=== PATIENT | male | born 1965 ===

== ENCOUNTER 2023-08-07 10:25 | Day surgery (SDC) | payer MEDICAID ==
[~2023-08-07 10:25] MED LIST: LACTATED RINGERS 1,000 ML IV ONE; ceFAZolin 2 GM VIAL ONE
[2023-08-07] MEDS ORDERED: BUPIVACAINE 0.25% PF 30 ML VIAL ONE ×2 (11:45→14:05)
--- NOTE | 2023-08-07 11:51 | HISTORY & PHYSICAL EXAMINATION ---
Chief Complaint - Chief Complaint Chief Complaint: here for hernia repairs History of Present Illness - History Obtained From Records Reviewed: yes History obtained from: pt Exam Limitations: none - History of Present Illness HPI Comment/Other: bilateral inguinal hernias. recurrent on the left. more symptomatic on the left History - Past Medical History Cardiovascular: reports: Hypertension Respiratory: reports: None GI: reports: None : reports: None HEENT: reports: Chronic vision loss, Other Psych: reports: None Musculoskeletal: reports: Scoliosis Derm: reports: Psoriasis MRSA Hx?: No - Past Surgical History General: reports: Other HEENT: reports: Tonsil/Adenoidectomy Meds/Allgy - Home Medications Home Medications: Ambulatory Orders Medication Instructions Recorded Confirmed Amlodipine Besylate [Norvasc] 10 mg PO DAILY 08/01/23 08/01/23 Ibuprofen [Motrin] 400 mg PO Q6H 08/01/23 08/01/23 Multivitamin 1 each PO DAILY 08/01/23 08/01/23 Zolpidem Tartrate [Ambien] 10 mg PO QPM 08/01/23 08/01/23 - Allergies Allergies/Adverse Reactions: Allergies Allergy/AdvReac Type Severity Reaction Status Date / Time No Known Drug Allergies Allergy Verified 08/07/23 09:49 Review of Systems - Other Findings Other Findings: 10 pt ros as above otherwise unremarkable Exam - Vital Signs Vital Signs: Vital Signs x48h Temp Pulse Resp BP Pulse Ox 08/07/23 09:45 36.3 C L 107 H 18 126/91 H 98 - Physical Exam General Appearance: positive: No acute distress, Alert Eyes Bilateral: positive: PERRL, EOMI ENT: positive: No signs of dehydration Neck: positive: No JVD Respiratory: positive: No respiratory distress Cardiovascular: positive: Regular rate & rhythm Abdomen: positive: Other (bilateral inguinal hernias present.) Neurologic/Psychiatric: positive: Oriented x3 Conclusion/Plan - Problem List (1) Inguinal hernia, bilateral Conclusion/Plan: plan laparoscopic repair, possible open. parq held and consent obtained
[2023-08-07] MEDS ORDERED: fentaNYL 100 MCG/2 ML VIAL ONE (12:26)
[2023-08-07] MEDS ORDERED: DEXAMETHASONE 4 MG/ML VIAL ONE (12:28)
[2023-08-07] MEDS ORDERED: ONDANSETRON 4 MG/2 ML VIAL ONE (12:28)
--- NOTE | 2023-08-07 12:50 | ANESTHESIA ---
Pre-Anesthesia VS, & Labs - Diagnosis BILATERAL INGUINAL HERNIAS - Procedure LAPARASCOPIC BILATERAL INGUINAL HERNIA REPAIR Vital Signs: Temp Pulse Resp BP Pulse Ox O2 Flow Rate 36.3 C L 107 H 18 126/91 H 98 08/07/23 09:45 08/07/23 09:45 08/07/23 09:45 08/07/23 09:45 08/07/23 09:45 Height: 5 ft 11 in Weight (kg): 73.2 kg Body Mass Index: 22.5 BMI Classification: Normal Home Medications and Allergies Home Medications: Ambulatory Orders Amlodipine Besylate [Norvasc] 10 mg PO DAILY 08/01/23 Ibuprofen [Motrin] 400 mg PO Q6H 08/01/23 Multivitamin 1 each PO DAILY 08/01/23 Zolpidem Tartrate [Ambien] 10 mg PO QPM 08/01/23 Amlodipine Besylate [Norvasc] 10 mg PO DAILY 08/01/23 Ibuprofen [Motrin] 400 mg PO Q6H 08/01/23 Multivitamin 1 each PO DAILY 08/01/23 Zolpidem Tartrate [Ambien] 10 mg PO QPM 08/01/23 Allergies/Adverse Reactions: Allergies Allergy/AdvReac Type Severity Reaction Status Date / Time No Known Drug Allergies Allergy Verified 08/07/23 09:49 Anes History & Medical History - Anesthetic History Anesthesia Complications: reports: No previous complications Family history of Anesthesia Complications: Denies Family history of Malignant Hyperthermia: Denies - Medical History Cardiovascular: reports: Hypertension Pulmonary: reports: None Gastrointestinal: reports: None Urinary: reports: None Musculoskeletal: reports: Scoliosis Skin: reports: Psoriasis Smoking Status: Heavy tobacco smoker Psychosocial: reports: Alcohol - Surgical History General: reports: Other Eyes Ears Nose Throat (EENT): reports: Tonsil/Adenoidectomy Exam General: Cooperative Dental: Poor dentition Mouth Openin Fingerbreadth Neck Mobility: Normal Mallampati classification: II Thyromental Distance: 4-6 cm Respiratory: Lungs clear Cardiovascular: Regular rate Plan Anesthesia Type: General Consent for Procedure(s) Verified and Reviewed: Yes Code Status: Attempt Resuscitation ASA classification: 2-Mild systemic disease Is this case an emergency?: No
[2023-08-07] MEDS ORDERED: ONDANSETRON 4 MG/2 ML VIAL IVP PRN (13:13)
[2023-08-07] MEDS ORDERED: ePHEDrine 50 MG/ML VIAL IVP PRN (13:13)
[2023-08-07] MEDS ORDERED: NALOXONE 0.4 MG/ML VIAL IVP PRN (13:13)
[2023-08-07] MEDS ORDERED: ATROPINE ABBOJECT 1 MG/10 ML SYRINGE IVP PRN (13:13)
[2023-08-07] MEDS ORDERED: METOCLOPRAMIDE 10 MG/2 ML VIAL IVP PRN (13:13)
[2023-08-07] MEDS ORDERED: MORPHINE 2 MG/ML CARPUJECT IVP PRN (13:13)
[2023-08-07] MEDS ORDERED: HYDROmorphone 0.5 MG/0.5 ML SYRINGE IVP PRN (13:13)
[2023-08-07] MEDS ORDERED: fentaNYL 100 MCG/2 ML VIAL IVP PRN (13:13)
[2023-08-07] MEDS ORDERED: LACTATED RINGERS 1,000 ML IV SCH (14:00)
[2023-08-07] MEDS ORDERED: SUGAMMADEX 200 MG/2 ML VIAL IVP ONE (14:06)
[2023-08-07] MEDS ORDERED: BUPIVACAINE 0.25% PF 30 ML VIAL SUBQ ONE (14:07)
[2023-08-07] MEDS ORDERED: LACTATED RINGERS 700 ML IV ONE (14:25)
[2023-08-07] MEDS ORDERED: oxyCODONE 5 MG TABLET PO PRN (14:41)
[2023-08-07] MEDS ORDERED: HYDROcod/ACETAM 5/325 MG TABLET PO PRN (14:41)
--- NOTE | 2023-08-07 14:48 | OPERATIVE REPORT ---
Operative Report - General Procedure Date: 08/07/23 Planned Procedure: lap bilateral inguinal hernia repair Pre-Op Diagnosis: large bilateral inguinal hernias, recurrent on the left Procedure Performed: lap bilateral inguinal hernia repair, preperitoneal Post Op Diagnosis: same. very large directs - Procedure Note Primary Surgeon: claudio higgins Anesthesia Technique: General ET tube, Local Pathology: none Estimated Blood Loss (mL): 2 Indications: large painful hernia bulges Findings: as above Complications: none - Other Other Information/Narrative: The patient was prepped identified brought to the operating room and placed in supine position. Sequential compression devices were placed. General endotracheal anesthesia was induced. Langford catheter was placed. He was prepped and draped in a sterile fashion and given preoperative antibiotics. Local anesthetic was given to the operative area. A 3 cm infraumbilical incision was made. A 2 and half centimeter incision was made on the fascia just right lateral of midline. The preperitoneal space was developed with digital blunt dissection. A Lyons trocar was placed and secured with 3 interrupted 0 Vicryl sutures. The preperitoneal space was further developed using the scope. In midline two 5 mm trochars were placed. The right inguinal hernia was first approached. The preperitoneal space was further developed. The peritoneum was further brought down. There was no indirect inguinal hernia. The inferior epigastrics were kept along the abdominal wall. The patient had very large direct inguinal hernias. The left side was then approached. Dissection proceeded in a similar fashion. A pocket was created on both sides to allow for large preformed mesh. Bard extra large preformed mesh was placed bilaterally and secured at the pubic tubercle along Paulo's ligament and anteriorly under the rectus musculature. The mesh lay in good position. CO2 was evacuated and trochars removed under vision. Fascia at the periumbilical area was closed with a total of 4 interrupted 0 Vicryl sutures. Skin was closed with a running 4-0 Monocryl subcuticular suture. Dressings were applied. The Langford catheter was removed. The patient tolerated the procedure well was awakened and brought to recovery in good condition.
[2023-08-07] MEDS ORDERED: HYDROcod/ACETAM 5/325 MG TABLET ONE (14:59)
--- NOTE | 2023-08-07 15:24 | ANESTHESIA POST OP EVALUATION ---
Anesthesia Post Eval - Post Anesthesia Eval Vitals: Last Vital Signs Temp 36.6 C 08/07/23 15:02 Pulse 103 H 08/07/23 15:18 Resp 18 08/07/23 15:18 BP 114/103 H 08/07/23 15:18 Pulse Ox 96 08/07/23 15:18 O2 Flow Rate CV Function Including HR & BP: Stable Pain Control: Satisfactory Nausea & Vomiting: Negative Mental Status: Baseline Respiratory Status: Airway Patent Hydration Status: Satisfactory Anesthesia Complications: None
[2023-08-07 16:18] VITALS: BP 143/89; O2SAT 96
== END 2023-08-07 17:45 | disposition home or self-care (01) ==
LOC: SDS 10:25 → MS3 16:00 → SDS 17:45
PROVIDERS: ATTEND Surgery
PROC: 0YUA4JZ Supplement Bilateral Inguinal Region with Synthetic Substitute, Percutaneous Endoscopic Approach (ICD-10-PCS; principal; 2023-08-07 12:00)
DX: K40.91 Unilateral inguinal hernia, without obstruction or gangrene, recurrent (principal); K40.90 Unilateral inguinal hernia, without obstruction or gangrene, not specified as recurrent; F17.200 Nicotine dependence, unspecified, uncomplicated
CPT/HCPCS: 49650; 49651; A9270; C1781; J7120

== ENCOUNTER 2025-03-22 08:28 | Inpatient (IN) ==
--- NOTE | 2025-03-22 08:47 | ED Physician Documentation ---
History of Present Illness Stated complaint Stated Complaint: FALL/HIP PX Chief complaint Chief Complaint: Neuro Additonal information Additional information: Patient is a 59-year-old male presenting today for concerns of right hip pain after he had an episode where he felt lightheaded, had a syncopal event, and impacted his right side 3 days ago. Patient states that since this time he has had difficulties ambulating and notes lateral and anterior hip pain. Patient states that prior to the syncopal episode on Friday, he felt lightheaded and felt the event coming on. Thinks he quickly regained consciousness once he was on the ground. States that he does not typically have episodes of syncope, but notes that he is been significantly malnourished over the last several months, and has had no appetite, thinks that this is what caused his symptoms. He denied any chest pain or palpitations prior to this. Since then he has had no chest pain, shortness of breath, or palpitations. His biggest complaint today is his right hip pain. In addition, he shares that over the last month has been treated by his primary care physician for ongoing infection in his genitourinary/anal region. Per chart review he was diagnosed with pruritus a night, and started on amoxicillin, clobetasol, Desitin, but patient reports that he is still having persistent symptoms. Denies any dysuria, suprapubic pain. States that he is having normal bowel movements. Currently denies any chest pain, shortness of breath while in the ER. Denies headache, visual changes, denies any nausea, vomiting, diarrhea, discoloration of his urine. Rates his pain currently as a 4 out of 10 in his right hip. Denies pain in his knee, ankle on the side, denies any other pelvic or back pain. Review of Systems Status of ROS: See HPI Meds/Allgy Home Medications Ambulatory Orders Medication Instructions Recorded Confirmed multivitamin 1 ea PO DAILY 08/01/2303/22 hydrocortisone 1 % topical cream 1 applic topical TID PRN itching 02/16/25 03/22/25 (Anti-Itch (hydrocortisone)) #28.35 grams clotrimazole-betamethasone 1 1 applic topical BID PRN rash 03/22/25 03/22/25 %-0.05 % topical cream hydrochlorothiazide 12.5 mg capsule 12.5 mg PO DAILY 0 03/22/25 03/22/25 ibuprofen 200 mg tablet (IBU-200) 600 mg PO TID PRN he adache 03/22/25 03/22/25 lisinopril 5 mg tablet 5 mg PO DAILY 03/22/2503/22 melatonin 10 mg tablet 10 mg PO HS 03/22/25 5 zolpidem 10 mg tablet (Ambien) 5 mg PO QPM 03/22/25 Allergies Allergies Allergy/AdvReac Type Severity Reaction Status Date / Time ciprofloxacin (From Cipro) Allergy Intermediate Nausea Verified 03/22/25 08:36 [facility] Active Problems All Active Problems (Updated 03/22/25 @ 19:02 by Patricia Magaña MD) Do not resuscitate (Acute) Alcohol abuse (Acute) Unintentional weight loss (Acute) Syncope (Acute) Hypokalemia (Acute) Hyponatremia (Acute) Hyponatremia (Acute) Trouble in sleeping (Acute) Elevated heart rate with elevated blood pressure without diagnosis of hypertension (Acute) Tachycardia (Acute) Perianal rash (Acute) Evelia infection (Acute) Constipation (Acute) Nipple tenderness (Acute) Pedal edema (Acute) Tobacco dependence (Chronic) Tinnitus, bilateral (Chronic) Chronic seborrheic dermatitis (Chronic) Psoriasis (Chronic) Insomnia (Chronic) Shoulder pain, bilateral (Chronic) Anxiety (Chronic) Medical History Medical History (Updated 03/22/25 @ 19:02 by Patricia Magaña MD) Inguinal hernia, bilateral Alcohol dependence Eczema Essential hypertension, benign Paranoid disorder Tension headache, chronic Impacted cerumen, bilateral Alopecia areata Surgical History Surgical History (Updated 03/22/25 @ 16:38 by Patricia Magaña MD) S/P tonsillectomy and adenoidectomy H/O inguinal hernia repair as a child and in 07/2023 Family History Family History (Updated 03/22/25 @ 16:45 by Patricia Magaña MD) Mother Breast cancer Heart attack Kidney disease Sister Asthma CAD (coronary artery disease) Drug abuse Father No problems noted. Sister Kidney disease Cancer Son Unknown cause of injury Son Unknown cause of injury Brother Well adult exam Social History Social History (Updated 03/22/25 @ 16:58 by Patricia Magaña MD) Smoking Status: Current every day smoker Number of Years Smoked: 48 How many cigarettes a day do you smoke? (20 cigarettes=1 Pk): 8 Second hand tobacco smoke exposure: No Do you dip or chew tobacco?: No Do you vape?: No Initiate information on smoking cessation: No Living arrangement: At home Marital Status: Single Living Condition: With friend(s) Support Person: Yes Relationship Notes: lives with friend Tony, no formal DPOA, but Tony "makes his decisions" Living Situation Details: Lives in [facility] with his friend for 10-11 years. Tony is on disability and they live off that disability. Patient himself w/o income Has a Durable Power of Master Control Operator for Health Care?: No DPOA on file?: No Has Health Care Directive?: No Health Care Directive on file?: No DPOA / Health Care Directive - Additional Notes: he has no formal paperwork with Tony. Physical Activity: Chairfast Level: Independent Physical - Functional Details: He will drive a car, dress himself, feed himself and do cooking and cleaning until he fell Do you feel safe in your home environment?: Yes History of physical, verbal, emotional, or financial abuse?: No ETOH Use: Wine and Liquor Frequency: Daily Number of drinks/day: 4 Number of days/week: 7 ETOH - Additional Notes: he shares a box of wine with his roommate and buys a new one every 3 days Substance Use: former substance user, cannabis (any form) and crack/cocaine Substance Use Details: no pot for a year, no cocaine for 35 years Occupation - Current: lives off roommates disability check Retired: Yes 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 HENMT normocephalic, head/scalp atraumatic and hearing grossly normal bilaterally Eyes Pupils 3 mm and reactive bilaterally. No conjunctival injection. Neck/C-Spine No posterior C-spine tenderness, ranging neck in all directions without difficulty. No step-offs or deformities. Respiratory breath sounds equal bilaterally and normal respiratory effort Clear to auscultation bilaterally, no increased respiratory effort. Satting at 98% on room air. Gastrointestinal Soft, nontender to palpation, no guarding, no rigidity, no peritoneal signs Genitourinary Diffuse Desitin cream throughout his inguinal/genital region. No marked erythema, fluctuance noted in scrotum/perianal region. Back/Pelvis spine normal to inspection, no thoracic spine tenderness and no lumbar spine tenderness Extremities Tenderness with internal and external rotation will significantly in the anterior and lateral portions of right hip. No obvious deformities. Moderate tense palpation in the lateral portion of right hip. Flexion and extension unremarkable in right knee, eversion, inversion, flexion and extension of right ankle unremarkable. Distal pulses intact in right lower extremity. Pelvis otherwise stable, nontender Psychiatry oriented x3 Results Vitals Vitals: Vital Signs - 24 hr 03/22/25 08:37 03/22/25 09:51 Temperature 37.0 C Temperature Source Temporal Artery Scan Pulse Rate 94 96 Respiratory Rate 18 17 Blood Pressure 118/80 134/89 H O2 Saturation 98 98 O2 Source Room air Room air Pain Intensity 0 Oxygen O2 Source Room air Labs Labs: Laboratory Tests 03/22/25 08:55 WBC 13.1 H RBC 3.75 L Hgb 12.0 L Hct 33.5 L MCV 89.3 MCH 32.0 H MCHC 35.8 RDW 11.9 L Plt Count 283 MPV 9.6 Neut # (Auto) 9.8 H Lymph # (Auto) 0.8 L [place] # (Auto) 2.1 H Eos # (Auto) 0.1 Baso # (Auto) 0.1 Absolute Nucleated RBC 0.00 Nucleated RBC % 0.0 Manual Slide Review Indicated RBC Morph Micro Appear 1+ ANISOCYTOSIS Sodium 115 L* Potassium 2.9 L Chloride 77 L* Carbon Dioxide 27 Anion Gap 11.0 BUN 13 Creatinine 1.4 H Estimated GFR (MDRD) 52 L Glucose 112 H Calcium 9.0 Magnesium 1.9 Total Bilirubin 0.7 AST 45 H ALT 39 Alkaline Phosphatase 79 Total Protein 6.7 Albumin 3.9 Globulin 2.8 Albumin/Globulin Ratio 1.4 PD Medical Decision Making ED course ED course: Assessment: 59-year-old male presenting with pain in his right hip after a fall 3 days ago, as well as concerns for malnutrition, failure to thrive, unintentional weight loss. Brought in by EMS. DDx: Includes but is not limited to, right hip fracture, acetabular fracture, femoral neck fracture, bursitis, electrolyte abnormality, dehydration, unintentional weight loss, malnutrition, etc. Workup: EKG per my read: Sinus rhythm, normal axis, regular intervals, no malignant ST segment changes. WBC 13.1, initial sodium 115, potassium 2.9, chloride in the 70s. X-ray of right hip shows an irregular appearance of the right acetabulum, and CT of hip was recommended. CT was ordered, however patient was sent to the ICU prior to results being returned while patient was in the ER. CT does show a minimally d isplaced or nondisplaced slightly comminuted fracture involving the midshaft of the right inferior pubic rami. Treatment: Oral potassium, hypertonic saline 3%. Discussion: Patient is critically ill, with significant hyponatremia of unclear etiology at this time. Suspect likely related to malnutrition, patient denies alcohol use. Other considerations would be SIADH, medication side effect. Amy esposito is on a diuretic. I discussed his case with the hospitalist team for admission to the ICU given his critical hyponatremia. Patient had no evidence of seizure, no focal neurologic deficits, and otherwise remained stable in the ER. Patient also had complaints of ongoing infection in his genital and perineal area. On my examination I cannot appreciate a significant infection - no evidence of necrotizing fasciitis, Lexis's gangrene. Possible there is a yeast component to this. Per chart review couple weeks ago he was evaluated by his primary care provider, and was diagnosed with pruritus ani, and started on antibiotics, topical creams. Patient says these are not helping as of now. I explained to patient that due to his critical electrolyte abnormalities he will be admitted to hospital and he was agreeable. Discharge Plan Discharge Patient Disposition: 64 [facility] DC/Xfer Condition: Stable Clinical Impression: Hyponatremia, Hypokalemia Interventions: ED Admission Assessment Last Done: 03/22/25 11:11 Vitals documented within 30 minutes of discharge?: Yes
--- OUTSIDE RECORDS SUMMARY | 2025-03-22 08:51 | EXTERNAL MEDICAL SUMMARY RPT | Continuity of Care Document ---
Author Organization [facility] Address [address] [place] [id number] Phone Problems date description facility 2025-01-29 10:35 Rash and other nonspecific skin eruption [facility] 2025-01-29 10:38 Candidiasis, unspecified [facility] 2025-01-29 10:38 Psoriasis, unspecified [facility] 2025-01-29 10:38 Rash and other nonspecific skin eruption [facility] 2025-01-30 00:02 Rash and other nonspecific skin eruption [facility] 2025-02-02 08:40 Anxiety disorder, unspecified [facility] 2025-02-02 08:40 Essential (primary) hypertensio n [facility] 2025-02-02 08:40 Tachycardia, unspecified [facility] 2025-02-02 08:40 Rash and other nonspecific skin eruption [facility] 2025-02-02 10:34 Candidiasis, unspecified [facility] 2025-02-02 10:34 Nicotine dependence, unspecifie d, uncomplicated [facility] 2025-02-02 10:34 Essential (primary) hypertensio n [facility] 2025-02-02 10:34 Psoriasis, unspecified [facility] 2025-02-02 10:34 Mastodynia [facility] 2025-02-02 10:34 Rash and other nonspecific skin eruption [facility] 2025-02-03 00:05 Anxiety disorder, unspecified [facility] 2025-02-03 00:05 Essential (primary) hypertensio n [facility] 2025-02-03 00:05 Tachycardia, unspecified [facility] 2025-02-03 00:05 Rash and other nonspecific skin eruption [facility] 2025-02-03 10:14 Anxiety disorder, unspecified [facility] 2025-02-03 10:14 Essential (primary) hypertensio n [facility] 2025-02-03 10:14 Tachycardia, unspecified [facility] 2025-02-03 10:14 Rash and other nonspecific skin eruption [facility] 2025-02-03 10:34 Essential (primary) hypertensio n [facility] 2025-02-04 14:44 Essential (primary) hypertensio n [facility] 2025-02-16 07:55 Rash and other nonspecific skin eruption [facility] Results/Labs test date facility value unit notes Result panel 1 CUL,WOUND (AEROBIC) 2025-02-02 08:20 [facility] (missing) (missing) (missing) CUL,WOUND (AEROBIC) 2025-02-02 08:20 [facility] (missing) (missing) CULTURE SOURCE: Perianal area AMPICILLIN 2025-02-02 08:20 [facility] >=32 (missing) This organism is NEGATIVE for Extended Spectrum Beta Lactamase CEFEPIME 2025-02-02 08:20 [facility] <=0.12 (missing) (missing) ERTAPENEM 2025-02-02 08:20 [facility] <=0.12 (missing) (missing) LEVOFLOXACIN 2025-02-02 08:20 [facility] <=0.12 (missing) (missing) CEFTRIAXONE 2025-02-02 08:20 [facility] <=0.25 (missing) (missing) CIPROFLOXACIN 2025-02-02 08:20 [facility] <=0.25 (missing) (missing) IMIPENEM 2025-02-02 08:20 [facility] <=0.25 (missing) (missing) GENTAMICIN 2025-02-02 08:20 [facility] <=1 (missing) (missing) TOBRAMYCIN 2025-02-02 08:20 [facility] <=1 (missing) (missing) TRIMETHOPRIM/SUL FAMETHOXAZOLE 2025-02-02 08:20 [facility] <=20 (missing) (missing) CEFAZOLIN 2025-02-02 08:20 [facility] <=4 (missing) (missing) PIPERACILLIN/LELE OBACTAM 2025-02-02 08:20 [facility] <=4 (missing) (missing) CUL,WOUND (AEROBIC) 2025-02-02 08:20 [facility] 11+ GROWTH (missing) (missing) AMPICILLIN/SULBA CTAM 2025-02-02 08:20 [facility] 16 (missing) (missing) CEFEPIME 2025-02-02 08:20 [facility] 2 (missing) (missing) CUL,WOUND (AEROBIC) 2025-02-02 08:20 [facility] 22+ GROWTH (missing) (missing) CUL,WOUND (AEROBIC) 2025-02-02 08:20 [facility] 33+ GROWTH (missing) (missing) CUL,WOUND (AEROBIC) 2025-02-02 08:20 [facility] 44+ GROWTH (missing) (missing) CUL,WOUND (AEROBIC) 2025-02-02 08:20 [facility] CC.1ORG 1 COLONY COUNT* (missing) (missing) CUL,WOUND (AEROBIC) 2025-02-02 08:20 [facility] CC.2ORG 2 COLONY COUNT* (missing) (missing) CUL,WOUND (AEROBIC) 2025-02-02 08:20 [facility] CC.6COLONY COUNT (missing) (missing) CUL,WOUND (AEROBIC) 2025-02-02 08:20 [facility] CULTURE IN PROGRESS. RESULTS TO FOLLOW. (missing) (missing) O:ESCCOL 2025-02-02 08:20 [facility] ESCCOLESCHERICHIA COLIESCHERICHIA COLI (missing) (missing) CUL,WOUND (AEROBIC) 2025-02-02 08:20 [facility] GNGRAM NEGATIVE GROWTH TO BE FURTHER IDENTIFIED (missing) (missing) CUL,WOUND (AEROBIC) 2025-02-02 08:20 [facility] GPGRAM POSITIVE GROWTH TO BE FURTHER IDENTIFIED (missing) (missing) CUL,WOUND (AEROBIC) 2025-02-02 08:20 [facility] GRAM STAIN (missing) (missing) CUL,WOUND (AEROBIC) 2025-02-02 08:20 [facility] GRAM STAIN (missing) CULTURE SOURCE: Perianal area CUL,WOUND (AEROBIC) 2025-02-02 08:20 [facility] IDMICID/JES COM* (missing) (missing) CUL,WOUND (AEROBIC) 2025-02-02 08:20 [facility] MODERATE GRAM NEGATIVE BACILLI (missing) (missing) CUL,WOUND (AEROBIC) 2025-02-02 08:20 [employer] NO WHITE BLOOD CELLS SEEN (missing) (missing) CUL,WOUND (AEROBIC) 2025-02-02 08:20 [facility] NORMAL Skin Brianne present in culture (missing) (missing) CUL,WOUND (AEROBIC) 2025-02-02 08:20 [facility] ORG.1PRELIM ORG ID* (missing) (missing) CUL,WOUND (AEROBIC) 2025-02-02 08:20 [facility] ORG.2PRELIM ORG ID* (missing) (missing) O:PSEAER 2025-02-02 08:20 [facility] PSEAERPSEUDOMONAS AERUGINOSAPSEUDOMONAS AERUGINOSA (missing) (missing) CUL,WOUND (AEROBIC) 2025-02-02 08:20 [facility] SENSISENSITIVITIES TO FOLLOW (missing) (missing) Social History date description facility
[2025-03-22 09:02] LABS: HCT - HEMATOCRIT 33.5 % (42.0-52.0); HGB - HEMOGLOBIN 12.0 g/dL (14.0-18.0); MEAN PLATELET VOLUME 9.6 fL (7.4-11.4); NRBC ABSOLUTE COUNT (AUTO) 0.00 x10^3/uL; NUCLEATED RED BLOOD CELLS AUTO 0.0 /100WBC; PLT - PLATELET COUNT 283 10^3/uL (130-450); RED CELL DISTRIBUTION WIDTH 11.9 % (12.0-15.0)
[2025-03-22 09:03] LABS: SLIDE REVIEW? Indicated
[2025-03-22 09:23] LABS: ALT ALANINE AMINOTRANSFERASE 39.0 IU/L (10-60); AST ASPARTATE AMINOTRANSFERASE 45.0 IU/L (10-42); BUN - BLOOD UREA NITROGEN 13.0 mg/dL (6-20); CARBON DIOXIDE - CO2 27.0 mmol/L (21-32); CREATININE 1.4 mg/dL (0.6-1.3); GFR - MDRD 52.0 (>89)
[2025-03-22 09:29] LABS: RBC MORPHOLOGY (MULTIPLE) 1+ ANISOCYTOSIS (NORMAL)
--- NOTE | 2025-03-22 10:01 | XRAY Report ---
PROCEDURE: XR Hip w/Pelvis 2-3V RT INDICATIONS: right hip pain after fall, unable to ambulate TECHNIQUE: 2 views of the hip were acquired. COMPARISON: None. FINDINGS: Poorly visualized lateral view. Bones: Right acetabulum appears irregular. Cannot exclude nondisplaced inferior right pubis ramus fracture. Soft tissues: No suspicious soft tissue calcifications or masses. IMPRESSION: Irregular appearance of the right acetabulum. Fracture cannot be excluded. CT is recommended for further evaluation given lack of visibility on lateral view. Reviewed by: Denise Elizalde MD on 03/22/2025 10:00 AM PDT Approved by: Denise Elizalde MD on 03/22/2025 10:00 AM PDT Station ID: [id number]
[2025-03-22] MEDS: POTASSIUM CHLORIDE 20 MEQ/15 ML UDC PO ONE (10:09)
--- NOTE | 2025-03-22 12:06 | CT Report ---
PROCEDURE: CT Pelvis WO INDICATIONS: concer for right hip fracture TECHNIQUE: Noncontrast CT was obtained through the bony pelvis, with coronal and sagittal reformatting. For radiation dose reduction, the following was used: automated exposure control, adjustment of mA and/or kV according to patient size. COMPARISON: Pelvic and hip radiograph on the same day. FINDINGS: Image quality: Excellent. Bones: There is an acute comminuted fractures involving mid shaft of right inferior pubic ramus without significant displacement at fracture site. Subtle nondisplaced fracture involving medial aspect of right superior pubic ramus is also seen best seen on series 10 image 79. No other fracture or dislocation is seen. Bilateral hip joint osteophytic changes are noted. No evidence of avascular necrosis of femoral heads. No suspicious bony lesion. Soft tissues: There is no pelvic free fluid of free air. No abnormal bowel wall thickening or mesenteric fat stranding. Sigmoid diverticulosis without CT evidence of acute diverticulitis. Urinary bladder wall thickness is normal. Post surgical changes in anterior abdominal wall from prior ventral hernia repair. No ventral hernia or significant inguinal hernia is seen. No abscess collection. No pelvic lymphadenopathy by size criteria. No discrete soft tissue mass or fluid collection. No abnormal soft tissue calcifications. IMPRESSION: 1. Minimally displaced or nondisplaced slightly comminuted fracture involving mid shaft of right inferior pubic ramus. Nondisplaced fracture involving medial aspect of right superior pubic ramus. No other fracture or dislocation. 2. Bilateral hip joint osseous arthritis. No evidence of avascular necrosis of femoral heads. 3. No gross pelvic soft tissue abnormalities. Reviewed by: Miah Malave MD on 03/22/2025 12:05 PM PDT Approved by: Miah Malave MD on 03/22/2025 12:05 PM PDT Station ID: [id number]
[2025-03-22] MEDS ORDERED: ONDANSETRON 4 MG/2 ML VIAL IVP PRN (12:15)
[2025-03-22] MEDS ORDERED: SODIUM CHLORIDE FLUSH 0.9% 10 ML SYRINGE IVP PRN (12:15)
[2025-03-22] MEDS ORDERED: ONDANSETRON ODT 4 MG TABLET TL PRN (12:15)
--- NOTE | 2025-03-22 12:45 | PHARMACY PROGRESS NOTE ---
Best Possible Medication History Admit Date and Time: 03/22/25 0953 Home Medications Medication Instructions Recorded Confirmed Type multivitamin 1 ea PO DAILY 08/01/2303/22 History hydrocortisone 1 % topical cream 1 applic topical TID PRN itching 02/16/25 03/22/25 Rx (Anti-Itch (hydrocortisone)) #28.35 grams clotrimazole-betamethasone 1 1 applic topical BID PRN rash 03/22/25 03/22/25 History %-0.05 % topical cream hydrochlorothiazide 12.5 mg capsule 12.5 mg PO DAILY 0 03/22/25 03/22/25 History ibuprofen 200 mg tablet (IBU-200) 600 mg PO TID PRN he adache 03/22/25 03/22/25 History lisinopril 5 mg tablet 5 mg PO DAILY 03/22/2503/22 History melatonin 10 mg tablet 10 mg PO HS 03/22/25 5 History zolpidem 10 mg tablet (Ambien) 5 mg PO QPM 03/22/25 History Processed by: Pharmacy (Medication reconciliation completed by Credit Administration SpecialistSusan) Medications reviewed in ED?: No Medication History completed: Yes Patient Interview: Completed Secondary Source(s): Insurance records [facility] Statement: As the person ultimately responsible for medication therapy, providers are able to order a medication from an existing home medication list in [facility] via the "Reconcile Routine" prior to Confirmation of that medication by physician support coordinator. Such practice is discouraged except when the physician, in their clinical judgment, deems that a medical need exists for a medication without regard to previous use.
--- NOTE | 2025-03-22 14:02 | HISTORY & PHYSICAL EXAMINATION ---
Chief Complaint Chief Complaint Chief Complaint: pain in R hip after fall History of Present Illness Admitted From Admitted From:: home History Obtained From Records Reviewed: Seesearch History obtained from: patient and ER provider Exam Limitations: none History of Present Illness HPI Comment/Other: Syncope March 19. Fell onto his right hip and he does not think he hurt his head. He came to the ER today because he could not walk due to the pain in his hip. The ER provider did immediate imaging and that he has an irregular appearance of the right acetabulum and a CT was recommended. CT was done and he has a minimally displaced or nondisplaced slightly comminuted fracture involving the midshaft of the right inferior pubic ramus. Nondisplaced fracture involving medial aspect of the right superior pubic ramus. No other fracture or dislocation. No avascular necrosis. However, in evaluating him, his sodium is 115. He is dizzy. Lightheaded. Potassium is low at 2.9. Chloride is 77. He tells us that he has not eaten very much over the last few days. Because it hurts to walk he has had a bucket next to his sofa where he has peed. On his med list he does take hydrochlorothiazide. His weight was 170 in June 2024. 168 in October 2024. 164 in January 2025. And 162 pounds in February 2025. He has had a change in his bowel habits over the last year. More constipated. But then his appetite has left him. He is not eating as much. That started about 3 to 4 weeks ago. Cannot figure out why. Food just does not taste good. He cannot make himself eat it. He does not have dysphagia. He does not have nausea or vomiting. Denies abd pain. He just has no appetite. He denies fevers, chills, sweats. Stool has now become a "thin gruel" that comes out of him. No blood in stool or urine. No change in the color of his stool. He denies any problems with his prostate. No rectal pain other than the rash that bothered him. No blood in stool. Nocturia is once a night if at all. Stream is about the same as always. If anything he has not been peeing at night because he has been eating or drinking. He started smoking at the age of 11 and smoked up to a pack per day. Currently smoking half a pack per day. He coughs on a daily basis but the cough has not changed. No change in the phlegm color. He drinks wine. He and his roommate share 1 of those big boxes of wine when they watch Netflix at night. They Do it on a nightly basis. A box of wine will last them 3 days. He has never had withdrawal, cirrhosis, congestive heart failure. He denies orthopnea, dyspnea on exertion, pedal edema. He has no cardiac issues as far as he knows. Never had a heart attack or angina.He denies IV drug abuse. 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 But the last time he used cocaine was over 35 years ago. He was last seen in the clinic in January 2025 when he had a rectal rash with burning and itching. He had tried hydrocortisone and lidocaine cream without any improvement. He was not getting much sleep. But is a little tachycardic in the low 100s. He had a large distinct reddened area in the perianal region. Amoxicillin was treated with for possible strep infection, fluconazole for fungal infection, clotrimazole and betamethasone for 2 weeks, Desitin, ketoconazole shampoo, and hydroxyzine. At that time he was also started lisinopril 5 mg in addition to his hydrochlorothiazide for high blood pressure. His blood pressure was 173/109 with a heart rate of 104. Meds/Allgy Home Medications Ambulatory Orders Medication Instructions Recorded Confirmed multivitamin 1 ea PO DAILY 08/01/2303/22 hydrocortisone 1 % topical cream 1 applic topical TID PRN itching 02/16/25 03/22/25 (Anti-Itch (hydrocortisone)) #28.35 grams clotrimazole-betamethasone 1 1 applic topical BID PRN rash 03/22/25 03/22/25 %-0.05 % topical cream hydrochlorothiazide 12.5 mg capsule 12.5 mg PO DAILY 0 03/22/25 03/22/25 ibuprofen 200 mg tablet (IBU-200) 600 mg PO TID PRN he adache 03/22/25 03/22/25 lisinopril 5 mg tablet 5 mg PO DAILY 03/22/2503/22 melatonin 10 mg tablet 10 mg PO HS 03/22/25 5 zolpidem 10 mg tablet (Ambien) 5 mg PO QPM 03/22/25 Allergies Allergies Allergy/AdvReac Type Severity Reaction Status Date / Time ciprofloxacin (From Cipro) Allergy Intermediate Nausea Verified 03/22/25 08:36 [facility] Active Problems All Active Problems (Updated 03/22/25 @ 19:02 by Patricia Magaña MD) Do not resuscitate (Acute) Alcohol abuse (Acute) Unintentional weight loss (Acute) Syncope (Acute) Hypokalemia (Acute) Hyponatremia (Acute) Hyponatremia (Acute) Trouble in sleeping (Acute) Elevated heart rate with elevated blood pressure without diagnosis of hypertension (Acute) Tachycardia (Acute) Perianal rash (Acute) Evelia infection (Acute) Constipation (Acute) Nipple tenderness (Acute) Pedal edema (Acute) Tobacco dependence (Chronic) Tinnitus, bilateral (Chronic) Chronic seborrheic dermatitis (Chronic) Psoriasis (Chronic) Insomnia (Chronic) Shoulder pain, bilateral (Chronic) Anxiety (Chronic) Medical History Medical History (Updated 03/22/25 @ 19:02 by Patricia Magaña MD) Inguinal hernia, bilateral Alcohol dependence Eczema Essential hypertension, benign Paranoid disorder Tension headache, chronic Impacted cerumen, bilateral Alopecia areata Surgical History Surgical History (Updated 03/22/25 @ 16:38 by Patricia Magaña MD) S/P tonsillectomy and adenoidectomy H/O inguinal hernia repair as a child and in 07/2023 Family History Family History (Updated 03/22/25 @ 16:45 by Patricia Magaña MD) Mother Breast cancer Heart attack Kidney disease Sister Asthma CAD (coronary artery disease) Drug abuse Father No problems noted. Sister Kidney disease Cancer Son Unknown cause of injury Son Unknown cause of injury Brother Well adult exam Social History Social History (Updated 03/22/25 @ 16:58 by Patricia Magaña MD) Smoking Status: Current every day smoker Number of Years Smoked: 48 How many cigarettes a day do you smoke? (20 cigarettes=1 Pk): 8 Second hand tobacco smoke exposure: No Do you dip or chew tobacco?: No Do you vape?: No Initiate information on smoking cessation: No Living arrangement: At home Marital Status: Single Living Condition: With friend(s) Support Person: Yes Relationship Notes: lives with friend Tony, no formal DPOA, but Tony "makes his decisions" Living Situation Details: Lives in [place] [facility] with his friend for 10-11 years. Tony is on disability and they live off that disability. Patient himself w/o income Has a Durable Power of Sql Architect for Health Care?: No DPOA on file?: No Has Health Care Directive?: No Health Care Directive on file?: No DPOA / Health Care Directive - Additional Notes: he has no formal paperwork with Tony. Physical Activity: Chairfast Level: Independent Physical - Functional Details: He will drive a car, dress himself, feed himself and do cooking and cleaning until he fell Do you feel safe in your home environment?: Yes History of physical, verbal, emotional, or financial abuse?: No ETOH Use: Wine and Liquor Frequency: Daily Number of drinks/day: 4 Number of days/week: 7 ETOH - Additional Notes: he shares a box of wine with his roommate and buys a new one every 3 days Substance Use: former substance user, cannabis (any form) and crack/cocaine Substance Use Details: no pot for a year, no cocaine for 35 years Occupation - Current: lives off roommates disability check Retired: Yes 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 Quit 11 yrs ago Service: No POLST Patient has POLST: No POLST Questions POLST CPR Status: Do Not Attempt Resuscitation (DNAR) / Allow Natural POLST Level (Do not Attempt) Level of Medical Intervention: Selective Treatment Review of Systems Status of ROS: 10 or more systems reviewed and unremarkable except as noted in history and below Constitutional Reports: Fatigue, Weakness, Changes in appetite or eating habits and Change in sleep pattern Eyes Reports: Vision loss and Corrective lenses Ears, nose, mouth, and throat Reports: Tinnitus, Dental pain, Dental decay and Other (frequent impacted cerumen); Denies: Vertigo, Difficulty swallowing, Throat pain, Neck pain, Throat swelling or Hoarseness Cardiovascular Reports: edema, swelling of feet/ankles, Syncope and lightheadedness; Denies: Irregular heart rate, chest pain, palpitations, shortness of breath with exertion, shortness of breath when lying down, Decreased exercise tolerance, leg pain with exertion or bluish discoloration of hands/feet Respiratory Reports: Cough and Sputum production (small amount daily); Denies: Shortness of breath, Change in phlegm color, Wheezing, Apnea or Snoring Gastrointestinal Reports: Poor appetite, Diarrhea, Change in bowel habits, Rectal swelling and Rectal itching; Denies: Abdominal pain, Abdominal distention, Nausea, Vomiting, Bile emesis, Chip blood emesis, Coffee grounds in vomit, Heartburn, Constipation, Bloating, Belching, Excessive passing of gas, Difficulty swallowing, Feeling full early or Painful bowel movements Genitourinary Denies: Painful urination, Flank pain, Incontinence, Urinary frequency, Urinary urgency, Nocturia or Blood in urine Musculoskeletal Reports: Back pain; Denies: Neck pain, Extremity swelling, Gout or Joint pain Integumentary/Breast Reports: Rash, Itching and Breast pain (nipple pain last year); Denies: Dryness, Redness, Skin pain, Sores or New lesion Neurological Reports: General weakness; Denies: Headache, Focal weakness, Weakness in extremities, Numbness in extremities, Pre-existing deficit, Abnormal gait, Lack of coordination, Dizziness, Vertigo, Confusion, Memory problems, Behavioral changes, Slurred speech or Difficulty communicating thoughts Psychiatric Reports: Anxiety, Mood swings, Paranoia and Other (Reads books all the time. Currently has 4 with him to read while he is in ); Denies: Depression, Delusions, Memory loss, Difficulty concentrating, Visual hallucinations or Auditory hallucinations Endocrine Reports: Fatigue; Denies: Excessive urination, Excessive thirst or Polyphagia Hematologic/Lymphatic Denies: Anemia, Easy bruising, Petechiae or Easy bleeding Allergic/Immunologic Denies: Throat swelling or Wheezing Prior Level of Functionality: Independent with ADLs up until 3 weeks ago, and driving a car Exam Exam Vital Signs: Vital Signs x48h Temp Pulse Pulse Resp BP BP Pulse Ox 03/22/25 18:00 101 H 17 95/70 96 03/22/25 17:00 88 13 100/62 95 03/22/25 16:00 36.5 C 93 18 113/62 95 03/22/25 15:00 96 21 134/91 H 97 03/22/25 14:00 87 15 107/70 96 03/22/25 13:00 82 20 111/75 96 03/22/25 11:20 87 16 129/82 96 Conclusion/Plan Problem List (1) Hyponatremia: Plan: Differential diagnosis would include fluid overload such as with ascites or congestive heart failure and pleural effusions. But the patient says he has no symptoms of those problems. Never been told he had cirrhosis. CT of the pelvis that identified his pelvic fracture does not identify ascites. Other causes could be neoplasm with SIADH from neoplasm. He takes hydrochlorothiazide and hydrochlorothiazide can do that. Especially in the context of someone who does not eat very much or drink very much and sharply reduced his p.o. intake 3 to 4 weeks ago. In the end his hyponatremia may be from the hydrochlorothiazide. Plan: Observation status to give hypertonic saline Correct saline no more than 6-8 mill equivalents in [address] of the chest Encourage fluid intake Check urine and serum osmolality Stop hydrochlorothiazide (2) Hypokalemia: Plan: Again, most likely due to nutritional deficits. (3) Syncope: Plan: I think that this gentleman describes a history of poor nutritional intake, mild to moderate alcohol intake as his main nutritional value, and a recent exacerbation of his anorexia for unknown reasons. This in turn caused the weight loss, probable dehydration and intravascular depletion, and the syncope when he got up. I will get telemetry overnight, and echocardiogram tomorrow to make sure there is no arrhythmia or valvular heart disease that I am missing. I do not hear murmur. I will also ask nursing to do orthostatic vitals Qualifiers: Syncope type: unspecified Qualified Code(s): R55 - Syncope and collapse (4) Unintentional weight loss: Plan: Unclear why he has always had a bad appetite. In speaking to his DPOA and brother, Talha Mcclellan, he says that his brother has had a long-term alcohol abuse problem. And is always been a poor eater. I have to worry that this patient may have a neoplasm that we have not uncovered. He is a smoker. Pelvis CT does not have abnormal bowel wall thickening or mesenteric fat stranding. He has sigmoid diverticulosis without diverticulitis. The urinary bladder has normal wall thickness. He is surgical changes from an anterior abdominal wall from prior ventral hernia repair. No ventral hernia or significant inguinal hernia is currently seen. No abscess collection. No pelvic lymphadenopathy. No discrete soft tissue mass or fluid collection. He denies any prostatic symptoms. And there is no abnormal lymphadenopathy around the prostate on the pelvic CT. He is a smoker. I will get a CT of the chest. He is not interested in colonoscopy or endoscopy. He has mild anemia that is normocytic. (5) Alcohol abuse: Plan: No history of withdrawal. I will start him on a vitamin as well as thiamine on a daily basis. (6) Do not resuscitate: Plan: Advance care planning conversation held. Please see note under separate dictation Lab Results Lab results reviewed: Yes 03/22/25 08:55 03/22/25 16:25 Core Measures Anticipated LOS I expect patient to be DC'd or transferred within 96 hours.: Yes DVT/VTE - Prophylaxis VTE/DVT Device ordered at admit?: Yes
[2025-03-22] MEDS: CALCIUM CARBONATE CHEW 500 MG TABLET PO PRN (15:17)
[2025-03-22] MEDS: oxyCODONE 5 MG TABLET PO PRN (15:17)
[2025-03-22 16:40] LABS: VBG PH 7.489 (7.31-7.41)
[2025-03-22 16:47] LABS: PHOSPHORUS 3.4 mg/dL (2.5-5.0)
[2025-03-22 16:52] LABS: BUN - BLOOD UREA NITROGEN 13.0 mg/dL (6-20); CARBON DIOXIDE - CO2 30.0 mmol/L (21-32); CREATININE 1.3 mg/dL (0.6-1.3); GFR - MDRD 56.0 (>89)
[2025-03-22] MEDS: SODIUM CHLORIDE FLUSH 0.9% 10 ML SYRINGE IVP SCH (17:24)
[2025-03-22] MEDS: ACETAMINOPHEN 325 MG TABLET PO PRN (17:24)
[2025-03-22] MEDS: MAGNESIUM OXIDE 400 MG TABLET PO ONE (18:29)
[2025-03-22] MEDS: POTASSIUM CHLOR 10 MEQ/100 ML 10 MEQ/100 ML BAG IV SCH (18:30)
[2025-03-22] MEDS: PRENATAL VITAMIN TABLET PO SCH (18:30)
[2025-03-22] MEDS: THIAMINE 100 MG TABLET PO SCH (18:30)
--- NOTE | 2025-03-22 19:01 | ADVANCE CARE PLANNING NOTE ---
Advance Care Planning Planning Encounter Date: 03/22/25 Time: 19:00 Purpose: Establish care goals and CODE STATUS Parties in Attendance: Hospitalist and patient Decisional Capacity of the Patient: Alert and oriented to person, place time and situation Diagnosis for Encounter (1) Hyponatremia: (2) Hypokalemia: (3) Syncope: Qualifiers: Syncope type: unspecified Qualified Code(s): R55 - Syncope and collapse (4) Unintentional weight loss: (5) Alcohol abuse: Encounter Subjective/Patient's Story: He was born in [place] but grew up in the town of [facility]. 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 He shrugs his shoulders and tells me there it a typical seen of cocaine abuse, alcohol abuse, marijuana abuse. He was a chain smoker and drank "pots and pots of coffee". He then got burned out. Stopped working about 10 or 11 years ago. He moved with a friend named Tony. Tony Christianson is his roommate. They have been roommates together for the last 10 years. They live in a trailer in [place]. The patient himself has minimal income. They live off the income that Tony has. 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 He wants Tony Christianson to be his advocate in case anything goes wrong. Although he does not mind having his brother Talha Mcclellan contacted, he would rather have Darrian Christianson as the person to contact on the POLST form with regards to illness and resuscitation status. His brother Talha Mcclellan still lives in [place]. His phone number is [phone]. Mr. Mcclellan states that he works nights and sleeps days. If it is an emergency, he will not answer the phone initially, but go ahead and call a second time. He will get up and answer if the phone rings twice. Mr. Christianson lives here in [place] and his phone number is [phone]. The patient's primary care provider is Amy Jackson. He is stiff all over. Has constant daily pain. But not unremitting. He does not really take a lot of medications for the daily stiffness. He does not use a cane or a walker. He is recently lost some weight. From our medical records it looks like he is lost about 8 to 10 pounds. He has chronic anorexia. Drinks about 3 to 4 glasses of wine a day. He and his roommate share a box of wine and it last about 3 days. No history of alcohol withdrawal. Patient is also a smoker. He quit pot 1 year ago. He quit cocaine 35 years ago. Started smoking at the age of 11 and smokes about 1/2 pack/day now. In his prior life he probably smoked 1-1/2 to 2 packs/day. Although he has a daily cough, and daily mild phlegm production, there is no hemoptysis. No chest pain. He has chronic dyspnea on exertion with limited endurance but that is remain unchanged for over a decade. He is now hospitalized for severe hyponatremia. He tells me that he wishes to be a DO NOT RESUSCITATE. Objective/Medical Story: Syncope March 19. Fell onto his right hip and he does not think he hurt his head. He came to the ER today because he could not walk due to the pain in his hip. The ER provider did immediate imaging and that he has an irregular appearance of the right acetabulum and a CT was recommended. CT was done and he has a minimally displaced or nondisplaced slightly comminuted fracture involving the midshaft of the right inferior pubic ramus. Nondisplaced fracture involving medial aspect of the right superior pubic ramus. No other fracture or dislocation. No avascular necrosis. However, in evaluating him, his sodium is 115. He is dizzy. Lightheaded. Potassium is low at 2.9. Chloride is 77. He tells us that he has not eaten very much over the last few days. Because it hurts to walk he has had a bucket next to his sofa where he has peed. On his med list he does take hydrochlor othiazide. His weight was 170 in June 2024. 168 in October 2024. 164 in January 2025. And 162 pounds in February 2025. He has had a change in his bowel habits over the last year. More constipated. But then his appetite has left him. He is not eating as much. That started about 3 to 4 weeks ago. Cannot figure out why. Food just does not taste good. He cannot make himself eat it. He does not have dysphagia. He does not have nausea or vomiting. Denies abd pain. He just has no appetite. He denies fevers, chills, sweats. Stool has now become a "thin gruel" that comes out of him. No blood in stool or urine. No change in the color of his stool. He denies any problems with his prostate. No rectal pain other than the rash that bothered him. No blood in stool. Nocturia is once a night if at all. Stream is about the same as always. If anything he has not been peeing at night because he has been eating or drinking. He started smoking at the age of 11 and smoked up to a pack per day. Currently smoking half a pack per day. He coughs on a daily basis but the cough has not changed. No change in the phlegm color. He drinks wine. He and his roommate share 1 of those big boxes of wine when they watch Netflix at night. They Do it on a nightly basis. A box of wine will last them 3 days. He has never had withdrawal, cirrhosis, congestive heart failure. He denies orthopnea, dyspnea on exertion, pedal edema. He has no cardiac issues as far as he knows. Never had a heart attack or angina.He denies IV drug abuse. He used to do quite a bit of intranasal cocaine when he was working full-time as a catalytic case operator. But the last time he used cocaine was over 35 years ago. He was last seen in the clinic in January 2025 when he had a rectal rash with burning and itching. He had tried hydrocortisone and lidocaine cream without any improvement. He was not getting much sleep. But is a little tachycardic in the low 100s. He had a large distinct reddened area in the perianal region. Amoxicillin was treated with for possible strep infection, fluconazole for fungal infection, clotrimazole and betamethasone for 2 weeks, Desitin, ketoconazole shampoo, and hydroxyzine. At that time he was also started lisinopril 5 mg in addition to his hydrochlorothiazide for high blood pressure. His blood pressure was 173/109 with a heart rate of 104. Goals of Care: He states that he would never want to live in a senior care. He would rather be transition to palliative and hospice care and in his own home then do that.After this episode of care, even with a hip fracture, he wants to go home. He still wants treatment for things like pneumonia, fractures, but refuses blood transfusions. Plan: 1. POLST form filled out. He is a DO NOT RESUSCITATE with limited intervention. The person to contact is going to be Mr. Darrian Escobar. 2. Will have to figure out how I can note in the chart that he refuses blood transfusions 3. He reluctantly agrees to home health. Willing to have an come into his home once or twice a week. He knows he is getting need help with bathing and ambu lation. 4. I will bring him a list of authors. He is currently reading on also that we both like. He says he is run out of authors to read. Code Status: Do Not Attempt Resuscitation Time spent on advance care plannin minutes
[2025-03-22] MEDS: PROCHLORPERAZINE 10 MG/2 ML VIAL IVP PRN (19:33)
[2025-03-22] MEDS: COD LIVER OIL/ZINC OXIDE 113 GM TUBE TOP PRN (19:46)
[2025-03-22] MEDS: MELATONIN 3 MG TABLET PO SCH (21:39)
[2025-03-22 22:43] LABS: BUN - BLOOD UREA NITROGEN 14.0 mg/dL (6-20); CARBON DIOXIDE - CO2 27.0 mmol/L (21-32); CREATININE 1.4 mg/dL (0.6-1.3); GFR - MDRD 52.0 (>89)
[2025-03-23] MEDS: POTASSIUM CHLOR 10 MEQ/100 ML 10 MEQ/100 ML BAG IV SCH (00:49)
[2025-03-23 02:29] LABS: GLUCOSE, URINE (UA) NEGATIVE (NEGATIVE); KETONES,URINE (UA) NEGATIVE (NEGATIVE); OCCULT BLOOD,URINE NEGATIVE (NEGATIVE)
[2025-03-23 04:38] LABS: HCT - HEMATOCRIT 31.7 % (42.0-52.0); HGB - HEMOGLOBIN 11.2 g/dL (14.0-18.0); RED CELL DISTRIBUTION WIDTH 11.9 % (12.0-15.0)
[2025-03-23 04:41] LABS: MEAN PLATELET VOLUME 10.0 fL (7.4-11.4); PLT - PLATELET COUNT 276 10^3/uL (130-450)
[2025-03-23 04:45] LABS: ABNORMAL LYMPHS % (MANUAL) 0 %; BASOPHILS # (MANUAL) 0.0 10^3/uL (0-0.1); EOSINOPHILS # (MANUAL) 0.0 10^3/uL (0-0.7)
[2025-03-23 04:55] LABS: PHOSPHORUS 3.1 mg/dL (2.5-5.0)
[2025-03-23 05:08] LABS: BUN - BLOOD UREA NITROGEN 12.0 mg/dL (6-20); CARBON DIOXIDE - CO2 26.0 mmol/L (21-32); CREATININE 1.3 mg/dL (0.6-1.3); GFR - MDRD 56.0 (>89)
[2025-03-23 05:14] LABS: VBG PH 7.446 (7.31-7.41)
[2025-03-23] MEDS: MAGNESIUM OXIDE 400 MG TABLET PO ONE (05:56)
[2025-03-23] MEDS: POTASSIUM CHLORIDE 20 MEQ TABLET PO ONE (05:56)
[2025-03-23 06:41] LABS: BAND NEUTROPHILS % (MANUAL) 2 %; LYMPHOCYTES # (MANUAL) 1.2 10^3/uL (1.5-3.5); LYMPHOCYTES % (MANUAL) 9 %; METAMYELOCYTES % (MANUAL) 1 %; MONOCYTES # (MANUAL) 1.4 10^3/uL (0.0-1.0); MYELOCYTES % (MANUAL) 1 %; NEUTROPHILS # (MANUAL) 10.8 10^3/uL (1.5-6.6); PLATELET MORPHOLOGY NORMAL APPEARANCE (NORMAL); RBC MORPHOLOGY (MULTIPLE) NORMAL APPEARANCE (NORMAL)
[2025-03-23 06:42] LABS: PLATELET ESTIMATE, MANUAL NORMAL (130-450,000) (NORMAL); WBC MORPHOLOGY (MULTIPLE) NORMAL APPEARANCE (NORMAL)
[2025-03-23] MEDS: SODIUM CHLORIDE 0.9% 1,000 ML IV SCH (08:00)
[2025-03-23] MEDS: ENOXAPARIN 40 MG/0.4 ML SYRINGE SUBQ SCH (08:00)
--- NOTE | 2025-03-23 09:43 | PROVIDER PROGRESS NOTE ---
Subjective Subjective Subjective: Patient states he feels slightly better today. He is having a difficult time moving. We talked about his pubic ramus fracture, and how a SNF would likely be recommended on discharge. He is adamantly against the idea. He prefers to go home. He would be open for home health. We talked about his p.o. intake, which is an poor at home for the last few days. Current Medications Current Medications Current Medications: Current Medications Generic Name Dose Route Start Last Admin Trade Name Freq PRN Reason Stop Dose Admin Acetaminophen 650 mg 03/22/25 12:15 03/22/25 17:24 Acetaminophen 325 Mg Tablet PO 650 mg Q4HR PRN Administration Pain 1 to 4, or Fever Calcium Carbonate/Glycine 500 mg 03/22/25 15:08 03/22/25 15:17 Calcium Carbonate Chew 500 Mg Tablet PO 500 mg Q4H PRN Administration INDIGESTION Enoxaparin Sodium 40 mg 03/23/25 09:00 03/23/25 08:00 Enoxaparin 40 Mg/0.4 Ml Syringe SUBQ Not Given DAILY HERMILA Sodium Chloride 1,000 mls @ 75 mls/hr 03/23/25 08:00 03/23/25 08:00 Normal Saline 0.9% IV 75 mls/hr .[id number] HERMILA Administration Ibuprofen 400 mg 03/22/25 18:53 Ibuprofen 400 Mg Tablet PO Q6HR PRN Moderate Pain (Level 4-6) Melatonin 3 mg 03/22/25 21:00 03/22/25 21:39 Melatonin 3 Mg Tablet PO 3 mg QPM HERMILA Administration Ondansetron HCl 4 mg 03/22/25 12:15 Ondansetron Odt 4 Mg Tablet TL Q6HR PRN Nausea / Vomiting Ondansetron HCl 4 mg 03/22/25 12:15 Ondansetron 4 Mg/2 Ml Vial IVP Q6HR PRN Nausea / Vomiting Oxycodone HCl 5 mg 03/22/25 12:15 03/23/25 02:14 Oxycodone 5 Mg Tablet PO 5 mg Q4HR PRN Administration Pain 5 to 7 Multivit/Folic Acid/Iron 1 tab 03/22/25 18:00 03/23/25 08:00 Vitamin Tablet PO 1 tab DAILYWM HERMILA Administration Prochlorperazine Edisylate 10 mg 03/22/25 12:15 03/23/25 02:19 Prochlorperazine 10 Mg/2 Ml Vial IVP 10 mg Q6HR PRN Administration Nausea / Vomiting Sodium Chloride 10 ml 03/22/25 17:00 03/23/25 08:00 Sodium Chloride Flush 0.9% 10 Ml Syringe IVP 10 ml 0100,0900,1700 HERMILA Administration Sodium Chloride 10 ml 03/22/25 12:15 Sodium Chloride Flush 0.9% 10 Ml Syringe IVP PRN PRN NEEDED PER PROVIDER ORDERS Thiamine HCl 100 mg 03/22/25 09:00 03/23/25 08:00 Thiamine 100 Mg Tablet PO 100 mg DAILY HERMILA Administration Trazodone HCl 100 mg 03/22/25 21:00 03/22/25 21:38 Trazodone 50 Mg Tablet PO 100 mg QPM HERMILA Administration Zinc Oxide 113 gm 03/22/25 17:21 03/22/25 19:46 Cod Liver Oil/Zinc Oxide 113 Gm Tube TOP 1 applic PRN PRN Administration Skin Care Objective Vital Signs/Intake & Output Reviewed Vital Signs: Yes Vital Signs: Vital Signs x48h Temp Pulse Resp BP Pulse Ox 03/23/25 09:00 95 21 90/68 96 03/23/25 08:00 98.8 F 108 H 22 132/89 H 96 03/23/25 06:59 103 H 14 128/77 96 03/23/25 06:00 85 16 102/71 97 03/23/25 05:00 98 19 136/97 H 96 03/23/25 04:00 88 16 108/70 96 03/23/25 04:00 98.4 F 88 16 108/70 96 03/23/25 03:00 90 14 89/62 L 93 03/23/25 03:00 90 14 89/62 L 93 03/23/25 02:00 92 18 119/76 96 Intake & Output: Intake & Output 03/20/25 03/21/25 03/22/25 03/23/25 23:59 23:59 23:59 23:59 Intake Total 963 / 963 700 / 700 Output Total 0 / 0 350 / 350 Balance 963 / 963 350 / 350 Weight (kg) 71.17 kg 62 kg Objective General Appearance: positive No acute distress and Alert; negative Anxious Eyes Bilateral: positive Normal inspection, PERRL and EOMI ENT: positive ENT inspection nml, Pharynx nml and No signs of dehydration Neck: positive Nml inspection, Thyroid nml and No JVD Respiratory: positive Chest non-tender, No respiratory distress and Breath sounds nml; negative Wheezes, Rales or Rhonchi Cardiovascular: positive Regular rate & rhythm, No murmur and No gallop; negative Tachycardia or Systolic murmur Abdomen: positive Non-tender, No organomegaly and No distention; negative Guarding or Splenomegaly Back: positive Nml inspection; negative CVA tenderness (R) or CVA tenderness (L) Skin: positive Other (Erythema around the groin, as well as his buttocks region. Small vesicules/blisters are also noted.) Extremities: positive Non-tender, Full ROM, Nml appearance and No pedal edema Neurologic/Psychiatric: positive Oriented x3, Motor nml and Mood/affect nml Lab Results 03/23/25 04:26 03/23/25 09:56 Other Labs: Lab Results x24hrs 03/23/25 03/23/25 03/22/25 Range/Units 04:26 01:53 22:07 WBC 13.7 H (4.8-10.8) x10^3/uL RBC 3.48 L (4.70-6.10) 10^6/uL Hgb 11.2 L (14.0-18.0) g/dL Hct 31.7 L (42.0-52.0) % MCV 91.1 (80.0-94.0) fL MCH 32.2 H (27.0-31.0) pg MCHC 35.3 (32.0-36.0) g/dL RDW 11.9 L (12.0-15.0) % Plt Count 276 (130-450) 10^3/uL MPV 10.0 (7.4-11.4) fL Neut # (Auto) Not Reportable Lymph # (Auto) Not Reportable Baker # (Auto) Not Reportable Eos # (Auto) Not Reportable Baso # (Auto) Not Reportable Absolute Nucleated RBC Not Reportable Total Counted 100 Band Neuts % (Manual) 2 (0 - 10) % Abnorm Lymph % (Manual) 0 % Metamyelocytes % 1 H ( - 0) % Myelocytes % 1 H ( - 0) % Nucleated RBC % Not Reportable Neutrophils # (Manual) 10.8 H (1.5-6.6) 10^3/uL Lymphocytes # (Manual) 1.2 L (1.5-3.5) 10^3/uL Monocytes # (Manual) 1.4 H (0.0-1.0) 10^3/uL Eosinophils # (Manual) 0.0 (0-0.7) 10^3/uL Basophils # (Manual) 0.0 (0-0.1) 10^3/uL Differential Comment MANUAL DIFFERENTIAL WBC Morphology NORMAL APPEARANCE (NORMAL) Platelet Estimate NORMAL (130-450,000) (NORMAL) Platelet Morphology NORMAL APPEARANCE (NORMAL) RBC Morph Micro Appear NORMAL APPEARANCE (NORMAL) VBG pH 7.446 H (7.31-7.41) Ionized Calcium 1.17 (1.09-1.30) mmol/L Sodium 118 L* 117 L* (135-145) mmol/L Potassium 3.6 3.7 (3.5-4.5) mmol/L Chloride 85 L 81 L (101-111) mmol/L Carbon Dioxide 26 27 (21-32) mmol/L Anion Gap 7.0 9.0 (6-13) BUN 12 14 (6-20) mg/dL Creatinine 1.3 1.4 H (0.6-1.3) mg/dL Estimated GFR (MDRD) 56 L 52 L (>89) Glucose 117 H 126 H (74-104) mg/dL Calcium 8.7 9.1 (8.5-10.3) mg/dL Phosphorus 3.1 (2.5-5.0) mg/dL Magnesium 1.8 (1.7-2.3) mg/dL B-Natriuretic Peptide 25 (5-100) pg/mL Urine Color YELLOW Urine Clarity CLEAR (CLEAR) Urine pH 6.0 (5.0-7.5) PH Ur Specific [place] 1.025 (1.002-1.030) Urine Protein NEGATIVE (NEGATIVE) mg/dL Urine Glucose (UA) NEGATIVE (NEGATIVE) mg/dL Urine Ketones NEGATIVE (NEGATIVE) mg/dL Urine Occult Blood NEGATIVE (NEGATIVE) Urine Nitrite NEGATIVE (NEGATIVE) Urine Bilirubin NEGATIVE (NEGATIVE) Urine Urobilinogen 0.2 (NORMAL) (NORMAL) E.U./dL Ur Leukocyte Esterase NEGATIVE (NEGATIVE) Ur Microscopic Review NOT INDICATED Urine Culture Comments NOT INDICATED Nasal Screen MRSA (PCR) (NEGATIVE) 03/22/25 03/22/25 Range/Units 16:25 11:40 WBC (4.8-10.8) x10^3/uL RBC (4.70-6.10) 10^6/uL Hgb (14.0-18.0) g/dL Hct (42.0-52.0) % MCV (80.0-94.0) fL MCH (27.0-31.0) pg MCHC (32.0-36.0) g/dL RDW (12.0-15.0) % Plt Count (130-450) 10^3/uL MPV (7.4-11.4) fL Neut # (Auto) Lymph # (Auto) Baker # (Auto) Eos # (Auto) Baso # (Auto) Absolute Nucleated RBC Total Counted Band Neuts % (Manual) (0 - 10) % Abnorm Lymph % (Manual) % Metamyelocytes % ( - 0) % Myelocytes % ( - 0) % Nucleated RBC % Neutrophils # (Manual) (1.5-6.6) 10^3/uL Lymphocytes # (Manual) (1.5-3.5) 10^3/uL Monocytes # (Manual) (0.0-1.0) 10^3/uL Eosinophils # (Manual) (0-0.7) 10^3/uL Basophils # (Manual) (0-0.1) 10^3/uL Differential Comment WBC Morphology (NORMAL) Platelet Estimate (NORMAL) Platelet Morphology (NORMAL) RBC Morph Micro Appear (NORMAL) VBG pH 7.489 H (7.31-7.41) Ionized Calcium 1.15 (1.09-1.30) mmol/L Sodium 119 L* (135-145) mmol/L Potassium 3.4 L (3.5-4.5) mmol/L Chloride 81 L (101-111) mmol/L Carbon Dioxide 30 (21-32) mmol/L Anion Gap 8.0 (6-13) BUN 13 (6-20) mg/dL Creatinine 1.3 (0.6-1.3) mg/dL Estimated GFR (MDRD) 56 L (>89) Glucose 120 H (74-104) mg/dL Calcium 8.8 (8.5-10.3) mg/dL Phosphorus 3.4 (2.5-5.0) mg/dL Magnesium 1.8 (1.7-2.3) mg/dL B-Natriuretic Peptide (5-100) pg/mL Urine Color Urine Clarity (CLEAR) Urine pH (5.0-7.5) PH Ur Specific [place] (1.002-1.030) Urine Protein (NEGATIVE) mg/dL Urine Glucose (UA) (NEGATIVE) mg/dL Urine Ketones (NEGATIVE) mg/dL Urine Occult Blood (NEGATIVE) Urine Nitrite (NEGATIVE) Urine Bilirubin (NEGATIVE) Urine Urobilinogen (NORMAL) E.U./dL Ur Leukocyte Esterase (NEGATIVE) Ur Microscopic Review Urine Culture Comments Nasal Screen MRSA (PCR) NEGATIVE (NEGATIVE) Diagnostic Imaging Diagnostic Imaging Results: positive Final report reviewed Assessment/Plan Problem List (1) Hyponatremia: Impression: Patient presented with hyponatremia as low as 115. Likely attributed to decreased p.o. intake versus beer [place] dennys. Corrected from 115-122 in 24 hours. Continue normal saline at 75 cc an hour. Continue to trend. Continue ICU level care for frequent sodium monitoring until patient is greater than 125. (2) Tinea cruris: Impression: Patient with diffuse erythema and rash around groin region. Wound cultures from outpatient reviewedpatient did grow E. coli and Pseudomonas aeruginosa, both sensitive to cefepime. Will continue IV cefepime at this time. Continue clotrimazole twice daily as well. (3) Hypokalemia: Impression: Due to decreased p.o. intake. Resolved. (4) Syncope: Impression: Poor nutritional intake, mild to moderate alcohol intake as his main nutritional value, and a recent exacerbation of his anorexia for unknown reasons. This in turn caused the weight loss, probable dehydration and intravascular depletion, and the syncope when he got up. Continue telemetry, ECHO ordered as well. Qualifiers: Syncope type: unspecified Qualified Code(s): R55 - Syncope and collapse (5) Unintentional weight loss: Impression: CT chest with no obvious masses noted. Likely due to poor nutritional intake, mild to moderate alcohol intake as his main nutritional value, and a recent exacerbation of his anorexia for unknown reasons. (6) Alcohol abuse: Impression: No history of withdrawal. I will start him on a vitamin as well as thiamine on a daily basis.
[2025-03-23 10:17] LABS: BUN - BLOOD UREA NITROGEN 12.0 mg/dL (6-20); CARBON DIOXIDE - CO2 29.0 mmol/L (21-32); CREATININE 1.1 mg/dL (0.6-1.3); GFR - MDRD 68.0 (>89)
--- NOTE | 2025-03-23 11:45 | CT Report ---
PROCEDURE: CT Chest WO INDICATIONS: smoker, alcohol abuse, anorexia, weight loss TECHNIQUE: A CT scan of the chest was performed. Intravenous contrast media was not administered. Images were recorded and evaluated at appropriate window settings. Reformats: axial MIP of the chest, coronal and sagittal. For radiation dose reduction, the following was used: automated exposure control, adjustment of mA and/or kV according to patient size. COMPARISON: None. FINDINGS: Image quality: Diagnostic Lungs and pleura:Mild centrilobular emphysema, worse in the apices. No airspace consolidation. Mild diffuse bronchial wall thickening. No suspicious focal nodules. No pleural effusions. Micronodules/granulomas are seen in the lungs, overall low suspicion, for example on the right mid image Mediastinum, heart, and esophagus: Normal heart size. Mildly patulous distal esophagus. Coronary calcifications. No lymphadenopathy by size criteria. Chest wall and thyroid: Mild gynecomastia. Thyroid is unremarkable Upper abdomen: No gross abnormality on these noncontrast images Bones: There are degenerative changes. No aggressive appearing osseous abnormality. Nonacute appearing height loss at T5 and T11. Degenerative osseous changes. IMPRESSION: No suspicious pulmonary nodules or definite metastatic disease on this noncontrast chest CT. Given patient's presumed risk factors, consider yearly chest CT screening/low dose lung cancer screening Mild emphysema and bronchitis. Coronary calcifications. Other findings above. Reviewed by: Felix Ingram MD on 03/23/2025 11:43 AM PDT Approved by: Felix Ingram MD on 03/23/2025 11:43 AM PDT Station ID: [id number]
[2025-03-23] MEDS: CLOTRIMAZOLE 1% CREAM 15 GM TUBE TOP SCH (12:55)
[2025-03-23] MEDS: CEFEPIME 2 GM VIAL IVP SCH (12:55)
[2025-03-23 22:13] LABS: BUN - BLOOD UREA NITROGEN 10.0 mg/dL (6-20); CARBON DIOXIDE - CO2 26.0 mmol/L (21-32); CREATININE 0.9 mg/dL (0.6-1.3); GFR - MDRD 86.0 (>89)
[2025-03-24 06:04] LABS: HCT - HEMATOCRIT 30.9 % (42.0-52.0); HGB - HEMOGLOBIN 10.7 g/dL (14.0-18.0); MEAN PLATELET VOLUME 9.3 fL (7.4-11.4); PLT - PLATELET COUNT 291 10^3/uL (130-450); RED CELL DISTRIBUTION WIDTH 12.1 % (12.0-15.0)
[2025-03-24 06:08] LABS: VBG PH 7.489 (7.31-7.41)
[2025-03-24 06:12] LABS: ABNORMAL LYMPHS % (MANUAL) 0 %; BAND NEUTROPHILS % (MANUAL) 0 %; BASOPHILS # (MANUAL) 0.0 10^3/uL (0-0.1)
[2025-03-24 06:26] LABS: BUN - BLOOD UREA NITROGEN 10.0 mg/dL (6-20); CARBON DIOXIDE - CO2 25.0 mmol/L (21-32); CREATININE 0.8 mg/dL (0.6-1.3); GFR - MDRD 98.0 (>89); PHOSPHORUS 3.8 mg/dL (2.5-5.0)
[2025-03-24 06:51] LABS: EOSINOPHILS # (MANUAL) 0.1 10^3/uL (0-0.7); LYMPHOCYTES # (MANUAL) 0.6 10^3/uL (1.5-3.5); LYMPHOCYTES % (MANUAL) 6 %; MONOCYTES # (MANUAL) 0.6 10^3/uL (0.0-1.0); NEUTROPHILS # (MANUAL) 8.5 10^3/uL (1.5-6.6)
[2025-03-24 06:52] LABS: PLATELET ESTIMATE, MANUAL NORMAL (130-450,000) (NORMAL); PLATELET MORPHOLOGY NORMAL APPEARANCE (NORMAL); RBC MORPHOLOGY (MULTIPLE) NORMAL APPEARANCE (NORMAL); WBC MORPHOLOGY (MULTIPLE) NORMAL APPEARANCE (NORMAL)
--- NOTE | 2025-03-24 09:08 | PROVIDER PROGRESS NOTE ---
Subjective Subjective Subjective: Patient states he feels slightly better today. He is having a difficult time moving. We talked about his pubic ramus fracture, and how a SNF would likely be recommended on discharge. He is adamantly against the idea. He prefers to go home. He would be open for home health. We talked about his p.o. intake, which is an poor at home for the last few days. Current Medications Current Medications Current Medications: Current Medications Generic Name Dose Route Start Last Admin Trade Name Freq PRN Reason Stop Dose Admin Acetaminophen 650 mg 03/22/25 12:15 03/22/25 17:24 Acetaminophen 325 Mg Tablet PO 650 mg Q4HR PRN Administration Pain 1 to 4, or Fever Calcium Carbonate/Glycine 500 mg 03/22/25 15:08 03/22/25 15:17 Calcium Carbonate Chew 500 Mg Tablet PO 500 mg Q4H PRN Administration INDIGESTION Cefepime HCl 2 gm 03/23/25 13:00 03/24/25 08:34 Cefepime 2 Gm Vial IVP 2 gm BID HERMILA Administration Clotrimazole 1 applic 03/23/25 13:00 03/24/25 08:34 Clotrimazole 1% Cream 15 Gm Tube TOP 1 applic BID HERMILA Administration Enoxaparin Sodium 40 mg 03/23/25 09:00 03/24/25 08:35 Enoxaparin 40 Mg/0.4 Ml Syringe SUBQ Not Given DAILY HERMILA Sodium Chloride 1,000 mls @ 75 mls/hr 03/23/25 08:00 03/23/25 20:56 Normal Saline 0.9% IV 75 mls/hr .[id number] HERMILA Administration Ibuprofen 400 mg 03/22/25 18:53 Ibuprofen 400 Mg Tablet PO Q6HR PRN Moderate Pain (Level 4-6) Melatonin 3 mg 03/22/25 21:00 03/23/25 22:59 Melatonin 3 Mg Tablet PO 3 mg QPM HERMILA Administration Ondansetron HCl 4 mg 03/22/25 12:15 Ondansetron Odt 4 Mg Tablet TL Q6HR PRN Nausea / Vomiting Ondansetron HCl 4 mg 03/22/25 12:15 Ondansetron 4 Mg/2 Ml Vial IVP Q6HR PRN Nausea / Vomiting Oxycodone HCl 5 mg 03/22/25 12:15 03/23/25 02:14 Oxycodone 5 Mg Tablet PO 5 mg Q4HR PRN Administration Pain 5 to 7 Multivit/Folic Acid/Iron 1 tab 03/22/25 18:00 03/24/25 08:34 Vitamin Tablet PO 1 tab DAILYWM HERMILA Administration Prochlorperazine Edisylate 10 mg 03/22/25 12:15 03/23/25 02:19 Prochlorperazine 10 Mg/2 Ml Vial IVP 10 mg Q6HR PRN Administration Nausea / Vomiting Sodium Chloride 10 ml 03/22/25 17:00 03/24/25 08:34 Sodium Chloride Flush 0.9% 10 Ml Syringe IVP 10 ml 0100,0900,1700 HERMILA Administration Sodium Chloride 10 ml 03/22/25 12:15 Sodium Chloride Flush 0.9% 10 Ml Syringe IVP PRN PRN NEEDED PER PROVIDER ORDERS Sterile Water 30 ml 03/23/25 13:00 03/24/25 08:35 Water For Injection,Sterile 10 Ml Vial MC 30 ml BID HERMILA Administration Thiamine HCl 100 mg 03/22/25 09:00 03/24/25 08:34 Thiamine 100 Mg Tablet PO 100 mg DAILY HERMILA Administration Trazodone HCl 100 mg 03/22/25 21:00 03/23/25 22:59 Trazodone 50 Mg Tablet PO 100 mg QPM HERMILA Administration Zinc Oxide 113 gm 03/22/25 17:21 03/22/25 19:46 Cod Liver Oil/Zinc Oxide 113 Gm Tube TOP 1 applic PRN PRN Administration Skin Care Objective Vital Signs/Intake & Output Reviewed Vital Signs: Yes Vital Signs: Vital Signs x48h Temp Pulse Resp BP Pulse Ox 03/24/25 08:32 97.7 F 98 16 136/89 H 97 03/24/25 04:40 98.1 F 107 H 16 121/85 96 Intake & Output: Intake & Output 03/21/25 03/22/25 03/23/25 03/24/25 23:59 23:59 23:59 23:59 Intake Total 963 / 963 5 / 2045 Output Total 0 / 0 750 / 750 Balance 963 / 963 1295 / 1295 Weight (kg) 71.17 kg 62 kg 68.5 kg Objective General Appearance: positive No acute distress and Alert; negative Anxious Eyes Bilateral: positive Normal inspection, PERRL and EOMI ENT: positive ENT inspection nml, Pharynx nml and No signs of dehydration Neck: positive Nml inspection, Thyroid nml and No JVD Respiratory: positive Chest non-tender, No respiratory distress and Breath sounds nml; negative Wheezes, Rales or Rhonchi Cardiovascular: positive Regular rate & rhythm, No murmur and No gallop; negative Tachycardia or Systolic murmur Abdomen: positive Non-tender, No organomegaly and No distention; negative Guarding or Splenomegaly Back: positive Nml inspection; negative CVA tenderness (R) or CVA tenderness (L) Skin: positive Other (Erythema around the groin, as well as his buttocks region. Small vesicules/blisters are also noted.) Extremities: positive Non-tender, Full ROM, Nml appearance and No pedal edema Neurologic/Psychiatric: positive Oriented x3, Motor nml and Mood/affect nml Lab Results 03/24/25 05:58 03/24/25 05:58 Other Labs: Lab Results x24hrs 03/24/25 03/23/25 03/23/25 Range/Units 05:58 21:49 09:56 Specimen Type BLOOD WBC 9.8 (4.8-10.8) x10^3/uL RBC 3.35 L (4.70-6.10) 10^6/uL Hgb 10.7 L (14.0-18.0) g/dL Hct 30.9 L (42.0-52.0) % MCV 92.2 (80.0-94.0) fL MCH 31.9 H (27.0-31.0) pg MCHC 34.6 (32.0-36.0) g/dL RDW 12.1 (12.0-15.0) % Plt Count 291 (130-450) 10^3/uL MPV 9.3 (7.4-11.4) fL Neut # (Auto) Not Reportable Lymph # (Auto) Not Reportable Thomas # (Auto) Not Reportable Eos # (Auto) Not Reportable Baso # (Auto) Not Reportable Absolute Nucleated RBC Not Reportable Total Counted 100 Band Neuts % (Manual) 0 (0 - 10) % Abnorm Lymph % (Manual) 0 % Nucleated RBC % Not Reportable Neutrophils # (Manual) 8.5 H (1.5-6.6) 10^3/uL Lymphocytes # (Manual) 0.6 L (1.5-3.5) 10^3/uL Monocytes # (Manual) 0.6 (0.0-1.0) 10^3/uL Eosinophils # (Manual) 0.1 (0-0.7) 10^3/uL Basophils # (Manual) 0.0 (0-0.1) 10^3/uL Differential Comment MANUAL DIFFERENTIAL WBC Morphology NORMAL APPEARANCE (NORMAL) Platelet Estimate NORMAL (130-450,000) (NORMAL) Platelet Morphology NORMAL APPEARANCE (NORMAL) RBC Morph Micro Appear NORMAL APPEARANCE (NORMAL) VBG pH 7.489 H (7.31-7.41) Ionized Calcium 1.19 (1.09-1.30) mmol/L Sodium 126 L 123 L 122 L (135-145) mmol/L Potassium 3.7 3.8 3.7 (3.5-4.5) mmol/L Chloride 95 L 91 L 87 L (101-111) mmol/L Carbon Dioxide 25 26 29 (21-32) mmol/L Anion Gap 6.0 6.0 6.0 (6-13) BUN 10 10 12 (6-20) mg/dL Creatinine 0.8 0.9 1.1 (0.6-1.3) mg/dL Estimated GFR (MDRD) 98 86 L 68 L (>89) Glucose 114 H 146 H 123 H (74-104) mg/dL Calcium 8.5 9.0 9.1 (8.5-10.3) mg/dL Phosphorus 3.8 (2.5-5.0) mg/dL Magnesium 1.6 L 1.8 (1.7-2.3) mg/dL Diagnostic Imaging Diagnostic Imaging Results: positive Final report reviewed Assessment/Plan Problem List (1) Hyponatremia: Impression: Patient presented with hyponatremia as low as 115. Likely attributed to decreased p.o. intake versus beer Poto dennys. Corrected from 115-122 in 24 hours. 126 now. Continue normal saline at 75 cc an hour. Continue to trend. (2) Tinea cruris: Impression: Patient with diffuse erythema and rash around groin region. Wound cultures from outpatient reviewedpatient did grow E. coli and Pseudomonas aeruginosa, both sensitive to cefepime. Will continue IV cefepime at this time. Improving. Leukocytosis resolving. Can likely switch to oral antibiotics tomorrow. Continue clotrimazole twice daily as well. (3) Hypokalemia: Impression: Due to decreased p.o. intake. Resolved. (4) Syncope: Impression: Poor nutritional intake, mild to moderate alcohol intake as his main nutritional value, and a recent exacerbation of his anorexia for unknown reasons. This in turn caused the weight loss, probable dehydration and intravascular depletion, and the syncope when he got up. Continue telemetry, ECHO completed, read pending as well. Qualifiers: Syncope type: unspecified Qualified Code(s): R55 - Syncope and collapse (5) Unintentional weight loss: Impression: CT chest with no obvious masses noted. Likely due to poor nutritional intake, mild to moderate alcohol intake as his main nutritional value, and a recent exacerbation of his anorexia for unknown reasons. (6) Alcohol abuse: Impression: No history of withdrawal. I will start him on a vitamin as well as thiamine on a daily basis.
[2025-03-24 11:24] LABS: PATHOLOGIST SLIDE COMMENTS SEE SEPARATE REPORT
[2025-03-24] MEDS: MAGNESIUM OXIDE 400 MG TABLET PO SCH (12:49)
[2025-03-24] MEDS: IBUPROFEN 400 MG TABLET PO PRN (14:14)
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
[2025-03-24] MEDS: BENZOCAINE/MENTHOL LOZENGE MM PRN (21:52)
[2025-03-25 06:18] LABS: HCT - HEMATOCRIT 32.0 % (42.0-52.0); HGB - HEMOGLOBIN 10.7 g/dL (14.0-18.0); MEAN PLATELET VOLUME 9.7 fL (7.4-11.4); PLT - PLATELET COUNT 345 10^3/uL (130-450); RED CELL DISTRIBUTION WIDTH 12.2 % (12.0-15.0)
[2025-03-25 06:23] LABS: ABNORMAL LYMPHS % (MANUAL) 0 %; BAND NEUTROPHILS % (MANUAL) 0 %
[2025-03-25 06:38] LABS: BUN - BLOOD UREA NITROGEN 12.0 mg/dL (6-20); CARBON DIOXIDE - CO2 25.0 mmol/L (21-32); CREATININE 0.9 mg/dL (0.6-1.3); GFR - MDRD 86.0 (>89)
[2025-03-25 06:57] LABS: BASOPHILS # (MANUAL) 0.3 10^3/uL (0-0.1); BASOPHILS % (MANUAL) 3 %; EOSINOPHILS # (MANUAL) 0.1 10^3/uL (0-0.7); LYMPHOCYTES # (MANUAL) 1.0 10^3/uL (1.5-3.5); LYMPHOCYTES % (MANUAL) 9 %; METAMYELOCYTES % (MANUAL) 2 %; MONOCYTES # (MANUAL) 1.4 10^3/uL (0.0-1.0); MYELOCYTES % (MANUAL) 2 %; NEUTROPHILS # (MANUAL) 7.6 10^3/uL (1.5-6.6); PLATELET ESTIMATE, MANUAL NORMAL (130-450,000) (NORMAL); PLATELET MORPHOLOGY NORMAL APPEARANCE (NORMAL); RBC MORPHOLOGY (MULTIPLE) NORMAL APPEARANCE (NORMAL); WBC MORPHOLOGY (MULTIPLE) NORMAL APPEARANCE (NORMAL)
--- NOTE | 2025-03-25 12:50 | Discharge Summary ---
Discharge Summary Admit Date: 03/22/25 Discharge Date: 03/25/25 Discharging Provider: Patricia Magaña MD Primary Care Provider: PETER Ireland Code Status: Attempt Resuscitation DIAGNOSES Admission Diagnoses: 1. Hyponatremia 2. Hypokalemia 3. Syncope 4. Unintentional weight loss 5. Alcohol abuse 6. DO NOT RESUSCITATE 7. Protein calorie malnutrition, moderate 8. Comminuted fracture mid shaft of right inferior pubic ramus, and right superior pubic ramus. HPI History of Present Illness: Syncope March 19. Fell onto his right hip and he does not think he hurt his head. He came to the ER today because he could not walk due to the pain in his hip. The ER provider did immediate imaging and that he has an irregular appearance of the right acetabulum and a CT was recommended. CT was done and he has a minimally displaced or nondisplaced slightly comminuted fracture involving the midshaft of the right inferior pubic ramus. Nondisplaced fracture involving medial aspect of the right superior pubic ramus. No other fracture or dislocation. No avascular necrosis. However, in evaluating him, his sodium is 115. He is dizzy. Lightheaded. Potassium is low at 2.9. Chloride is 77. He tells us that he has not eaten very much over the last few days. Because it hurts to walk he has had a bucket next to his sofa where he has peed. On his med list he does take hydrochlorothiazide. His weight was 170 in June 2024. 168 in October 2024. 164 in January 2025. And 162 pounds in February 2025. He has had a change in his bowel habits over the last year. More constipated. But then his appetite has left him. He is not eating as much. That started about 3 to 4 weeks ago. Cannot figure out why. Food just does not taste good. He cannot make himself eat it. He does not have dysphagia. He does not have nausea or vomiting. Denies abd pain. He just has no appetite. He denies fevers, chills, sweats. Stool has now become a "thin gruel" that comes out of him. No blood in stool or urine. No change in the color of his stool. He denies any problems with his prostate. No rectal pain other than the rash that bothered him. No blood in stool. Nocturia is once a night if at all. Stream is about the same as always. If anything he has not been peeing at night because he has been eating or drinking. He started smoking at the age of 11 and smoked up to a pack per day. Currently smoking half a pack per day. He coughs on a daily basis but the cough has not changed. No change in the phlegm color. He drinks wine. He and his roommate share 1 of those big boxes of wine when they watch Netflix at night. They Do it on a nightly basis. A box of wine will last them 3 days. He has never had withdrawal, cirrhosis, congestive heart failure. He denies orthopnea, dyspnea on exertion, pedal edema. He has no cardiac issues as far as he knows. Never had a heart attack or angina.He denies IV drug abuse. 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 But the last time he used cocaine was over 35 years ago. He was last seen in the clinic in January 2025 when he had a rectal rash with burning and itching. He had tried hydrocortisone and lidocaine cream without any improvement. He was not getting much sleep. But is a little tachycardic in the low 100s. He had a large distinct reddened area in the perianal region. Amoxicillin was treated with for possible strep infection, fluconazole for fungal infection, clotrimazole and betamethasone for 2 weeks, Desitin, ketoconazole shampoo, and hydroxyzine. At that time he was also started lisinopril 5 mg in addition to his hydrochlorothiazide for high blood pressure. His blood pressure was 173/109 with a heart rate of 104. CONSULTS | PROCEDURES Procedures: Hip/pelvis x-ray has an irregular appearance of the right acetabulum. Fracture cannot be excluded. CT recommended. CT of pelvis without has a minimally displaced or nondisplaced slightly comminuted fracture involving the midshaft of the right inferior pubic ramus. Also a nondisplaced fracture involving the medial aspect of the right superior pubic ramus. No other fracture or dislocation. Bilateral hip joint osteoarthritis. No evidence of vascular necrosis. No gross pelvic soft tissue abnormalities. Chest CT done for being a smoker, alcohol abuser and anorexia with weight loss. I am looking for cancer. Did not have any suspicious pulmonary nodules or definitive metastatic disease on this noncontrast CT. Mild emphysema and bronchitis. Coronary calcifications. Consider yearly chest CT screening/low- dose lung cancer screening. HOSPITAL COURSE Hospital Course: The patient was placed on a hypertonic saline drip. His sodium went from 115- 118 the next day. That was on the . His sodium gradually improved with normal saline drip from the to the to126. On the morning of discharge he was at 129. He does not feel dizzy or lightheaded. He does have problems with hip pain because of the cracked pelvis. He does not want to go to a jail facility for respite care. And is reluctantly willing to work with home health PT. As such I have ordered home health RN to draw sodium every week to make sure it stays elevated or goes to normal.I have explained to him that I think that alcohol abuse without any true nutritional intake besides alcohol is resulting in weight loss, anorexia, hyponatremia, and the falls.I am recommending he stop the hydrochlorothiazide. Exam at discharge was with a blood pressure of 130/70. Pulse 102. Respirations 18. Temperature 36.4. O2 sat 97% on room air. He is a thin disheveled white male with long unkempt hair and sarah. Poor dentition. Partially edentulous. 5 feet 11 inches tall, 68.5 kg. Shotty neck adenopathy. Occasional rhonchi that clear with cough. No wheezing and no respiratory distress but he does have prolonged end exhalation breathing phase. Will cage visible through chest wall. PMI normally placed with a regular rate and rhythm and a systolic ejection murmur. Abdomen is soft and nontender. Extremities are thin, muscle wasting. He has pretty significant pain when he is asked to sit and stand. But he is able to focus. Has guarding and grimacing and reports a 5 out of 10 pain. He requires a standby assist for bed mobility, transfers, gait. He uses a front wheel walker. He walked about 60 feet with a front wheel walker and standby assist. He has a short stride length and limited pushoff but is able to manage the walker, obstacles and turns. He needs to see his primary care provider in follow-up. I am recommending weekly BMPs to be done until sodium is stabilized. I am again reiterating that he needs to stop drinking. I have started on vitamins, thiamine, folate.He is requesting the clotrimazole be called in. I did initially call all his prescriptions into the would be community pharmacy. But he is unable to pick those up there and wants them to be called into [facility]. So we called in clotrimazole, magnesium oxide, vitamin, thiamine to [facility]. As well as trazodone. I would like him to stop using the Ambien if possible. ALLERGIES Allergies Allergy/AdvReac Type Severity Reaction Status Date / Time ciprofloxacin (From Cipro) Allergy Intermediate Nausea Verified 03/22/25 08:36 MEDICATIONS Ambulatory Orders Medication Instructions Recorded Confirmed multivitamin 1 ea PO DAILY 08/01/2303/22 hydrocortisone 1 % topical cream 1 applic topical TID PRN itching 02/16/25 03/22/25 (Anti-Itch (hydrocortisone)) #28.35 grams ibuprofen 200 mg tablet (IBU-200) 600 mg PO TID PRN he adache 03/22/25 03/22/25 lisinopril 5 mg tablet 5 mg PO DAILY 03/22/2503/22 melatonin 10 mg tablet 10 mg PO HS 03/22/25 5 zolpidem 10 mg tablet (Ambien) 5 mg PO QPM 03/22/25 clotrimazole-betamethasone 1 1 applic topical BID PRN rash #45 03/25/25 %-0.05 % topical cream grams magnesium oxide 400 mg (241.3 mg 400 mg PO DAILYWM #30 tabs 03/25/25 magnesium) tablet vit,calcium 27-ferrous 1 tab PO DAILYWM #30 t abs 03/25/25 fum 60 mg iron-folic acid 1 mg tablet (Trinatal Rx 1) thiamine mononitrate (vit B1) 100 100 mg PO DAILY #30 tabs 03/25/25 mg tablet (Vitamin B-1 (mononitrate)) trazodone 50 mg tablet 100 mg (2 x 50 mg) PO QPM #3 0 tabs 03/25/25 clotrimazole 1 % topical solution 1 applic topical BID #30 mL 03/26/25 magnesium hydroxide 400 mg/5 mL 5 ml PO DAILY #3,000 m L 03/26/25 oral suspension vits no.126-ferrous fum 1 tab PO DAILY #30 ta bs 03/26/25 28 mg iron-folic acid 800 mcg tablet (Classic ) thiamine HCl (vitamin B1) 100 mg 100 mg PO DAILY #30 t abs 03/26/25 tablet trazodone 100 mg tablet 100 mg PO DAILY #30 tabs PHYSICAL EXAM AT DISCHARGE Vital Signs: Vital Signs x48h Temp Pulse Resp BP Pulse Ox 03/25/25 10:04 36.3 C L 97 20 118/73 98 LABS 03/25/25 05:55 03/25/25 05:55 Discharge Plan Discharge Patient Disposition: 06 Home Health Service Condition: Stable Prescriptions: New magnesium oxide 400 mg (241.3 mg magnesium) Tablet 400 mg PO DAILYWM Qty: 30 0RF Trinatal Rx 1 60 mg iron-1 mg Tablet 1 tab PO DAILYWM Qty: 30 0RF thiamine mononitrate (vit B1) [Vitamin B-1 (mononitrate)] 100 mg Tablet 100 mg PO DAILY Qty: 30 0RF trazodone 50 mg Tablet 100 mg PO QPM Qty: 30 0RF magnesium hydroxide 400 mg/5 mL suspension 5 ml PO DAILY Qty: 3000 0RF thiamine HCl (vitamin B1) 100 mg tablet 100 mg PO DAILY Qty: 30 0RF trazodone 100 mg tablet 100 mg PO DAILY Qty: 30 2RF Classic 28 mg iron- 800 mcg tablet 1 tab PO DAILY Qty: 30 0RF clotrimazole 1 % solution 1 applic topical BID Qty: 30 0RF Continued multivitamin 1 EACH tablet 1 ea PO DAILY ibuprofen [IBU-200] 200 mg tablet 600 mg PO TID PRN (Reason: headache) Rx Instructions: USUALLY TAKES AT LEAST ONCE PER DAY melatonin 10 mg tablet 10 mg PO HS lisinopril 5 mg tablet 5 mg PO DAILY zolpidem [Ambien] 10 mg tablet 5 mg PO QPM clotrimazole-betamethasone 1-0.05 % cream 1 applic TOPICAL BID PRN (Reason: rash) Qty: 45 0RF hydrocortisone [Anti-Itch (HC)] 1 % cream 1 applic topical TID PRN (Reason: itching) Qty: 28.35 1RF Discontinued hydrochlorothiazide 12.5 mg capsule 12.5 mg PO DAILY Activity Restrictions: Activity as Tolerated Diet: Regular Health Concerns: You presented to the hospital because your hip was hurting you. You have a long-term history of having a poor appetite. You also have a problem with alcohol abuse and most of your nutritional intake seems to be with alcohol. You have lost about 8 to 10 pounds in the last few months. You continue to have poor appetite. You got up off the sofa and fell on March 19. In doing an examination, and analyzing your blood work, we think that you passed out because you your blood pressure got too low as you stood up. And your blood pressure is too low because you do not have enough good nutrition and you are dehydrated. That resulted in no blood flow to the head. And then passing out. You had immediate hip pain and your mobility was limited by that hip pain. You spend even more time on the sofa. You came to the emergency room because you could not walk and we found you to have a cracked pelvis in 2 places. You do not need surgery. It is not a broken hip. That was not the reason you were admitted. While we were evaluating you for your hip pain, we did routine labs we found you to have your sodium at 115. We think that your sodium is low because of your alcohol abuse. We have given you salt water intravenously. Your sodium has come up to 129. You are alert, able to tell us what you want. And you would like to go home. We did offer you the opportunity of going to a jail but you really want to go home. We recognize that you are going to be with diminished capacity, even more so, because of your cracked pelvis. It will be very painful to walk. So you have given us permission to order home health nurse to come check your sodium once a week. And I am also ordering a home health aide to give you a bath once or twice a week. And physical therapy to work with you 2 or 3 times a week to keep her strength up. Instructions for discharge: I have stopped your hydrochlorothiazide because that will contribute to a low sodium Please see your primary care provider, Amy Jackson, in the next 1 to 2 weeks. She will need to check your blood pressure. The home health nurse is going to be drawing your blood once a week to make sure your sodium stays elevated Make sure that you eat small amounts of food. You really are malnourished and with this episode of a cracked pelvis, and low sodium, you may be at risk for further deterioration physically as well as possible early . New medications will be a vitamin once a day, and thiamine once a day. That is because alcohol abuse results in disruption in the way red cells are made in your bone marrow. And I am giving you the building blocks and help make healthier red cells. I am also sending you home on magnesium oxide tablets. Your magnesium was low while you are here and you have been on a supplement. Please refrain from drinking any alcohol. At this time you need to focus on your good nutritional intake, and no alcohol intake. Do this for at least a year before you go back to drinking. Print Language: Lebanese Patient Instructions: Social Drinking vs Problem Drinking, Weight Management: Healthy Eating, Finding Your [facility] Follow-up Care: Amy Jackson ARNP [Provider Admit Priv/Credential, Family Practice] Vitals documented within 30 minutes of discharge?: Yes
[2025-03-25 14:10] VITALS: TEMP 97.5
[2025-03-25 16:02] VITALS: BP 130/70; O2SAT 97
--- NOTE | 2025-03-26 17:24 | ECHO Report ---
Version: 1 Study ID: [id number] [id number] Adult Echocardiogram Report Name: SLIME MARTÍNEZ Study Date: 03/24/2025, 11: 15 AM BP: 136 / 89 mmHg Patient Location: [id number]^[id number] HR: 85 bpm : 1965 (MM/DD/YYYY) Gender: Male Height: 71 in Age: 59 Years Weight: 151.017 lb BSA: 1.87 m² Reason For Study: Syncope and fall History: Recent syncope and fall with right pubic ramus fracture h/o alcohol abuse Interpretation Summary Global left ventricular systolic function is normal at 55 =-60 % Left Ventricle: The left ventricle is grossly normal size. Global left ventricular systolic function is normal. The visual left ventricular ejection fraction is estimated at 55 to 60%. Regional wall motion abnormalities cannot be excluded due to limited visualization. Diastolic function could not be accurately assessed due to unobtainable data. Right Ventricle: The basal right ventricular diameter measured from a right ventricular focused view is 4.4 cm. The right ventricle is mildly dilated. The right ventricular systolic function is normal. Aortic Valve: The aortic valve is trileaflet. The aortic valve is normal in structure and function. No hemodynamically significant valvular aortic stenosis. No aortic regurgitation is present. Mitral Valve: The mitral valve is not well visualized. Tricuspid Valve: The tricuspid valve is not well visualized. There is no tricuspid stenosis. No hemodynamically significant TR. Pulmonic Valve: The pulmonic valve is not well seen. Left Atrium: The left atrium is not well visualized. Right Atrium: Right atrium not well visualized. The inferior vena cava is mildly dilated with mildly decreased collapse with sniff (estimated right atrial pressure 10-15mmHg). Atrial Septum: The interatrial septum is not well seen. Interatrial shunt cannot be excluded. Aorta: The ascending aorta is not well seen. The sinuses of Valsalva are not well visualized. Pulmonary Artery: Pulmonary artery systolic pressure could not be estimated due to an insufficient tricuspid regurgitant jet. Pericardium/Pleural Space: There is no pericardial effusion. MMode/2D Measurements & Calculations BMI: 21.1 kilograms/m² BSA(Haycock): 1.85 m² Doppler Measurements & Calculations RAP systole: 10.0 mmHg Procedure Notes: A focused 2D and Doppler study was performed. Indication: Evaluate cardiac and valve function. This study was focused secondary to limited cardiac windows. Technically limited exam due to body habitus and lung interference. Only able to obtain subcostal images. The patient was uncomfortable throughout the procedure, causing moderate difficulties in image acquisition. The underlying rhythm was sinus. CPT Codes: [id number]: Color Doppler flow. [id number]: Spectral Doppler, limited. [id number]: Transthoracic Echo without spectral or color Doppler, Limited. MD Fely Childress 03/26/2025, 5: 23 PM Ordering Physician: Patricia Magaña Referring Physician: Moy Ernandez Performed By: Britta Choe RDCS
== END 2025-03-25 16:05 | disposition home health service (06) | DRG 641 ==
LOC: ED 08:28 → ICU 08:28 → MS3 03-23 14:46
PROVIDERS: ADMIT Specialist; ATTEND Specialist